=== PATIENT | male | born 1970 | race Caucasian/White ===

== ENCOUNTER 2020-07-06 09:58 | Outpatient (REF) | payer OTHER, SELFPAY ==
[2020-07-06 10:33] LABS: MANUAL DIFF FLAG NO
[2020-07-06 10:37] LABS: Basophils Percent Auto 0.3 % (0-2); Eosinophils Absolute Auto 0.1 X10*3/uL (0.0-0.4); Eosinophils Percent Auto 2.2 % (0-4); Hematocrit 44.8 % (42-52); Hemoglobin 14.3 g/dl (14.0-18.0); Imm Gran Abs Auto 0.02 X10*3/uL (0.00-0.03); Imm Gran Pct Auto 0.3 % (0.0-0.4); Lymphocytes Absolute Auto 1.6 X10*3/uL (1.2-4.9); Lymphocytes Percent Auto 26.7 % (20-40); Mean Corpuscular HGB Conc 31.9 g/dl (31.0-36.0); Mean Corpuscular Hemoglobin 26.6 pg (27.0-33.0); Mean Corpuscular Volume 83.3 fL (80-98); Mean Platelet Volume 11.2 fL (9.4-12.4); Monocytes Absolute Auto 0.4 X10*3/uL (0.1-1.2); Monocytes Percent Auto 6.8 % (2-11); Neutrophils Absolute Auto 3.7 X10*3/uL (2.0-8.3); Neutrophils Percent Auto 63.7 % (45-73); Platelet Count 193 X10*3/uL (160-400); Red Blood Count 5.38 X10*6/uL (4.60-5.80); Red Cell Distribution Width 13.2 % (11.0-16.0); White Blood Count 5.8 X10*3/uL (4.8-10.8)
[2020-07-06 12:50] LABS: Alanine Aminotransferase 30 U/L (0-40); Albumin Level 4.2 g/dL (3.5-5.0); Alkaline Phosphatase 58 U/L (39-117); Anion Gap 13 (12-20); Aspartate Amino Transferase 22 U/L (5-37); Bilirubin Total 0.8 mg/dL (0.0-1.0); Blood Urea Nitrogen 16 mg/dL (9-16); Calcium 9.1 mg/dL (8.4-10.2); Carbon Dioxide 25 mmol/L (22-29); Chloride 110 mmol/L (96-108); Cholesterol 228 mg/dL; Estimated Glomerular Filt Rate > 60; Glucose Fasting 101 mg/dL (60-99); HDL Cholesterol 39 mg/dL; LDL Cholesterol Calculated 155 mg/dl; Potassium 4.4 mmol/L (3.3-5.1); Sodium 144 mmol/L (135-145); Total Protein 7.8 g/dL (6.5-8.0); Triglycerides 172 mg/dL
== END 2020-07-06 09:59 | disposition home or self-care (01) ==
LOC: HO.LAB 09:58
PROVIDERS: PCP Internal Medicine; Visit Provider Internal Medicine
DX: Z00.00 Encounter for general adult medical examination without abnormal findings (principal); E11.9 Type 2 diabetes mellitus without complications
CPT/HCPCS: 36415; 80053; 80061; 85025

== ENCOUNTER 2020-08-17 10:00 | Outpatient (RCR) | payer OTHER, SELFPAY | END 2020-12-02 08:17 | disposition home or self-care (01) | LOC: HO.PT 10:00 | PROVIDERS: Visit Provider Podiatrist | DX: M72.2 Plantar fascial fibromatosis (principal) | CPT/HCPCS: 97033; 97110; 97112; 97140; 97162; 97530 ==

== ENCOUNTER 2020-09-20 09:37 | Outpatient (REF) | payer OTHER, SELFPAY ==
--- NOTE | ~2020-09-20 | XR_ITS ---
EXAMINATION: XR HAND, BILATERAL XR ELBOW, RIGHT CLINICAL INFORMATION: Pain. COMPARISON: None TECHNIQUE: Right elbow 3 views. 3 views each hand. FINDINGS: RIGHT ELBOW: There is a small posterior olecranon enthesophyte. No visible acute fracture or dislocation. The soft tissues are normal. LEFT HAND: There is no visible acute fracture, dislocation or subluxation seen. MCP, PIP and DIP joints are normal. There is joints are normal. The soft tissues are normal. RIGHT HAND: There is no visible acute fracture, dislocation or subluxation. MCP, PIP and DIP joints and the wrist joints are normal. The soft tissue is normal. XR/XR hand LT 2V IMPRESSION: Unremarkable bilateral hand exam. Small posterior olecranon head enthesophyte. Otherwise unremarkable right elbow exam.
--- NOTE | ~2020-09-20 | XR_ITS ---
EXAMINATION: XR HAND, BILATERAL XR ELBOW, RIGHT CLINICAL INFORMATION: Pain. COMPARISON: None TECHNIQUE: Right elbow 3 views. 3 views each hand. FINDINGS: RIGHT ELBOW: There is a small posterior olecranon enthesophyte. No visible acute fracture or dislocation. The soft tissues are normal. LEFT HAND: There is no visible acute fracture, dislocation or subluxation seen. MCP, PIP and DIP joints are normal. There is joints are normal. The soft tissues are normal. RIGHT HAND: There is no visible acute fracture, dislocation or subluxation. MCP, PIP and DIP joints and the wrist joints are normal. The soft tissue is normal. XR/XR elbow RT 2V IMPRESSION: Unremarkable bilateral hand exam. Small posterior olecranon head enthesophyte. Otherwise unremarkable right elbow exam.
--- NOTE | ~2020-09-20 | XR_ITS ---
EXAMINATION: XR HAND, BILATERAL XR ELBOW, RIGHT CLINICAL INFORMATION: Pain. COMPARISON: None TECHNIQUE: Right elbow 3 views. 3 views each hand. FINDINGS: RIGHT ELBOW: There is a small posterior olecranon enthesophyte. No visible acute fracture or dislocation. The soft tissues are normal. LEFT HAND: There is no visible acute fracture, dislocation or subluxation seen. MCP, PIP and DIP joints are normal. There is joints are normal. The soft tissues are normal. RIGHT HAND: There is no visible acute fracture, dislocation or subluxation. MCP, PIP and DIP joints and the wrist joints are normal. The soft tissue is normal. XR/XR hand RT 2V IMPRESSION: Unremarkable bilateral hand exam. Small posterior olecranon head enthesophyte. Otherwise unremarkable right elbow exam.
--- NOTE | ~2020-09-20 | XR_ITS ---
EXAMINATION: XR ELBOW, LEFT CLINICAL INFORMATION: Pain. COMPARISON: None TECHNIQUE: AP, lateral, and oblique views of the left elbow. FINDINGS: There is a small olecranon process enthesophyte. No acute fracture, dislocation, loose bodies or bony erosive changes. No abnormal joint effusion. XR/XR elbow LT 2V IMPRESSION: Small olecranon process enthesophyte.
[2020-09-20 10:47] LABS: Erythrocyte Sedimentation Rate 4 MM/HR (0-15)
== END 2020-09-20 09:38 | disposition home or self-care (01) ==
LOC: HO.XRAY 09:37
PROVIDERS: PCP Internal Medicine; Visit Provider Internal Medicine
DX: M79.10 Myalgia, unspecified site (principal); M79.643 Pain in unspecified hand; M25.521 Pain in right elbow; M25.522 Pain in left elbow; M79.641 Pain in right hand; M79.642 Pain in left hand
CPT/HCPCS: 36415; 73070; 73120; 85652

== ENCOUNTER 2021-01-03 13:00 | Outpatient (RCR) | payer OTHER, SELFPAY | END 2021-08-16 10:53 | disposition home or self-care (01) | LOC: HO.OT 13:00 | PROVIDERS: PCP Internal Medicine; Visit Provider Internal Medicine | DX: M25.521 Pain in right elbow (principal); M25.522 Pain in left elbow | CPT/HCPCS: 97033; 97035; 97110; 97165 ==

== ENCOUNTER 2021-01-25 12:14 | Outpatient (REF) | payer OTHER, SELFPAY ==
[2021-01-26 07:55] LABS: HBsAGNum1 0.66 S/CO (0.00-0.99); Hepatitis B Surface Antigen Negative (Negative)
[2021-01-26 08:02] LABS: HIV AB/AG Nonreactive (Nonreactive); HIV Num 1 0.07 S/CO (0.00-0.99); ~HepC Num1 0.15 S/CO (0.00-0.79); ~Hepatitis C Antibody Nonreactive (Nonreactive)
[2021-01-26 09:41] LABS: Syphilis Screen Nonreactive (Nonreactive)
== END 2021-01-25 12:15 | disposition home or self-care (01) ==
LOC: HO.LAB 12:14
PROVIDERS: PCP Internal Medicine; Visit Provider Obstetrics & Gynecology Reproductive Endocrinology
DX: N46.9 Male infertility, unspecified (principal)
CPT/HCPCS: 36415; 86780; 86803; 87340; 87389

== ENCOUNTER 2021-07-15 08:17 | Outpatient (REF) | payer BC, SELFPAY ==
[2021-07-15 08:28] LABS: MANUAL DIFF FLAG NO
[2021-07-15 09:17] LABS: Basophils Percent Auto 0.6 % (0-2); Eosinophils Absolute Auto 0.2 X10*3/uL (0.0-0.4); Eosinophils Percent Auto 2.6 % (0-4); Hematocrit 46.1 % (42.0-52.0); Hemoglobin 14.6 g/dl (14.0-18.0); Imm Gran Abs Auto 0.03 X10*3/uL (0.00-0.03); Imm Gran Pct Auto 0.4 % (0.0-0.4); Lymphocytes Absolute Auto 1.8 X10*3/uL (1.2-4.9); Lymphocytes Percent Auto 25.4 % (20-40); Mean Corpuscular HGB Conc 31.7 g/dl (31.0-36.0); Mean Corpuscular Hemoglobin 26.3 pg (27.0-33.0); Mean Corpuscular Volume 83.1 fL (80.0-98.0); Mean Platelet Volume 12.3 fL (9.4-12.4); Monocytes Absolute Auto 0.6 X10*3/uL (0.1-1.2); Monocytes Percent Auto 7.6 % (2-11); Neutrophils Absolute Auto 4.6 x10*3/uL (2.0-8.3); Neutrophils Percent Auto 63.4 % (45-73); Platelet Count 159 X10*3/uL (160-400); Red Blood Count 5.55 X10*6/uL (4.60-5.80); Red Cell Distribution Width 13.7 % (11.0-16.0); White Blood Count 7.2 X10*3/uL (4.8-10.8)
[2021-07-15 09:40] LABS: Alanine Aminotransferase 49 U/L (0-40); Albumin Level 4.2 g/dL (3.5-5.0); Alkaline Phosphatase 65 U/L (39-117); Anion Gap 11 (12-20); Aspartate Amino Transferase 32 U/L (5-37); Bilirubin Total 0.5 mg/dL (0.0-1.0); Blood Urea Nitrogen 18 mg/dL (9-16); Calcium 9.7 mg/dL (8.4-10.2); Carbon Dioxide 29 mmol/L (22-29); Chloride 106 mmol/L (96-108); Cholesterol 234 mg/dL; Estimated Glomerular Filt Rate > 60; Glucose Fasting 94 mg/dL (60-99); HDL Cholesterol 39 mg/dL; LDL Cholesterol Calculated 153 mg/dl; Potassium 4.5 mmol/L (3.3-5.1); Sodium 141 mmol/L (135-145); Total Protein 7.8 g/dL (6.5-8.0); Triglycerides 214 mg/dL
== END 2021-07-15 08:18 | disposition home or self-care (01) ==
LOC: HO.LAB 08:17
PROVIDERS: PCP Internal Medicine; Visit Provider Internal Medicine
DX: Z00.00 Encounter for general adult medical examination without abnormal findings (principal); Z13.0 Encounter for screening for diseases of the blood and blood-forming organs and certain disorders involving the immune mechanism
CPT/HCPCS: 36415; 80053; 80061; 85025

== ENCOUNTER 2022-01-05 07:55 | Outpatient (REF) | payer BC, SELFPAY ==
--- NOTE | ~2022-01-05 | XR_ITS ---
EXAMINATION: XR SHOULDER, LEFT CLINICAL INFORMATION: Left shoulder pain. COMPARISON: None TECHNIQUE: AP, scapular, and axillary views of the left shoulder. FINDINGS: No acute fracture or dislocation. Mild glenohumeral joint space narrowing with small marginal osteophytes. No osseous erosion. Small calcification adjacent to the lesser tuberosity consistent with distal subscapularis calcific tendinitis. XR/XR shoulder LT min 2V IMPRESSION: 1. Mild glenohumeral osteoarthritis. 2. Minimal distal subscapularis calcific tendinitis.
== END 2022-01-05 07:56 | disposition home or self-care (01) ==
LOC: HO.HOSX 07:55
PROVIDERS: Visit Provider Physician Assistant
DX: M25.512 Pain in left shoulder (principal)
CPT/HCPCS: 73030

== ENCOUNTER 2022-08-03 07:15 | Outpatient (REF) | payer BC, SELFPAY ==
[2022-08-03 07:27] LABS: MANUAL DIFF FLAG NO
[2022-08-03 07:41] LABS: Basophils Percent Auto 0.3 % (0-2); Eosinophils Absolute Auto 0.2 X10*3/uL (0.0-0.4); Eosinophils Percent Auto 2.8 % (0-4); Hematocrit 45.6 % (42.0-52.0); Hemoglobin 14.4 g/dl (14.0-18.0); Imm Gran Abs Auto 0.02 X10*3/uL (0.00-0.03); Imm Gran Pct Auto 0.3 % (0.0-0.4); Lymphocytes Absolute Auto 1.2 X10*3/uL (1.2-4.9); Lymphocytes Percent Auto 20.4 % (20-40); Mean Corpuscular HGB Conc 31.6 g/dl (31.0-36.0); Mean Corpuscular Hemoglobin 25.4 pg (27.0-33.0); Mean Corpuscular Volume 80.6 fL (80.0-98.0); Mean Platelet Volume 10.6 fL (9.4-12.4); Monocytes Absolute Auto 0.6 X10*3/uL (0.1-1.2); Monocytes Percent Auto 9.7 % (2-11); Neutrophils Absolute Auto 4.1 x10*3/uL (2.0-8.3); Neutrophils Percent Auto 66.5 % (45-73); Platelet Count 194 X10*3/uL (160-400); Red Blood Count 5.66 X10*6/uL (4.60-5.80); Red Cell Distribution Width 14.3 % (11.0-16.0); White Blood Count 6.1 X10*3/uL (4.8-10.8)
[2022-08-03 08:08] LABS: Alanine Aminotransferase 30 U/L (0-40); Albumin Level 4.1 g/dL (3.5-5.0); Alkaline Phosphatase 69 U/L (39-117); Anion Gap 13 (12-20); Aspartate Amino Transferase 20 U/L (5-37); Bilirubin Total 0.9 mg/dL (0.0-1.0); Blood Urea Nitrogen 16 mg/dL (9-16); Carbon Dioxide 26 mmol/L (22-29); Chloride 107 mmol/L (96-108); Cholesterol 215 mg/dL; Estimated Glomerular Filt Rate > 60; Glucose Fasting 109 mg/dL (60-99); HDL Cholesterol 40 mg/dL; LDL Cholesterol Calculated 152 mg/dl; Sodium 142 mmol/L (135-145); Total Protein 7.7 g/dL (6.5-8.0); Triglycerides 119 mg/dL
== END 2022-08-03 07:16 | disposition home or self-care (01) ==
LOC: HO.LAB 07:15
PROVIDERS: PCP Internal Medicine; Visit Provider Internal Medicine
DX: E78.5 Hyperlipidemia, unspecified (principal); N28.9 Disorder of kidney and ureter, unspecified; D64.9 Anemia, unspecified
CPT/HCPCS: 36415; 80053; 80061; 85025

== ENCOUNTER 2022-08-22 14:36 | Outpatient (REF) | payer BC, SELFPAY ==
--- NOTE | ~2022-08-22 | XR_ITS ---
EXAMINATION: XR HAND, BILATERAL CLINICAL INDICATIONS: Pain. TECHNIQUE: 3 views each hand. COMPARISON: Bilateral hands 09/20/2020. FINDINGS: Right Hand: There is minimal reduction in the PIP and DIP joint spaces of all digits. The MCP joint and the wrist joints are maintained normal. There is mild periarticular spurring PIP joint 1st digit. No bony erosive changes, loose bodies seen. No acute fracture or dislocation. Left Hand: There is mild reduction of PIP and DIP joint spaces of all digits. The MCP and intercarpal joint spaces are maintained normal. No visible acute fracture, dislocation or bony erosive changes. The soft tissues are normal. XR/XR hand RT 2V IMPRESSION: Mild degenerative changes PIP and DIP joints both hands. No visible acute fracture, dislocation or subluxation seen.
--- NOTE | ~2022-08-22 | XR_ITS ---
EXAMINATION: XR HAND, BILATERAL CLINICAL INDICATIONS: Pain. TECHNIQUE: 3 views each hand. COMPARISON: Bilateral hands 09/20/2020. FINDINGS: Right Hand: There is minimal reduction in the PIP and DIP joint spaces of all digits. The MCP joint and the wrist joints are maintained normal. There is mild periarticular spurring PIP joint 1st digit. No bony erosive changes, loose bodies seen. No acute fracture or dislocation. Left Hand: There is mild reduction of PIP and DIP joint spaces of all digits. The MCP and intercarpal joint spaces are maintained normal. No visible acute fracture, dislocation or bony erosive changes. The soft tissues are normal. XR/XR hand LT 2V IMPRESSION: Mild degenerative changes PIP and DIP joints both hands. No visible acute fracture, dislocation or subluxation seen.
== END 2022-08-22 14:37 | disposition home or self-care (01) ==
LOC: HO.XRAY 14:36
PROVIDERS: PCP Internal Medicine; Visit Provider Internal Medicine
DX: M79.641 Pain in right hand (principal); M79.642 Pain in left hand
CPT/HCPCS: 73120

== ENCOUNTER 2023-02-23 07:08 | Day surgery (SDC) | payer BC, SELFPAY ==
[2023-02-21 14:52] VITALS: BMI 32.4
--- NOTE | 2023-02-22 08:54 | HO.ANESPROP2 ---
Documented by User: Myra Marie NP 02/22/23 08:55 HPI - Anesthesia Eval Consult details Narrative: 52yo M for Upper Endoscopy and Colonoscopy [facility] Active Problems Active Problems: All Active Problems (Updated 02/21/23 @ 14:50 by Ana Cristina Schneider RN) Painful arc syndrome of left shoulder (Acute) Hoarse (Acute) Vertigo (Acute) Myalgia (Acute) Physical exam (Acute) Heel spur (Acute) Obesity (Acute) Past Medical History Medical History GERD (gastroesophageal reflux disease) Obesity Family History Family History Father No problems noted. 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 Cognitive needs: No Hearing needs: No Vision needs: No Meds Allergies Allergy/AdvReac Type Severity Reaction Status Date / Time shellfish derived Allergy Unknown Rash Verified 02/23/23 07:45 Exam Exam Date and Time: February 22, 2023 0854 Height,Weight and Vital Signs: Height 5 ft 7 in Weight 93.894 kg Pertinent Lab Results Pertinent Lab Results: Laboratory Tests 08/03/22 07:25 WBC 6.1 Hgb 14.4 Hct 45.6 Plt Count 194 Sodium 142 Potassium 4.0 Chloride 107 Carbon Dioxide 26 BUN 16 Creatinine 1.02 Documented by User: David Kelsey MD 03/08/23 17:44 [facility] Past Medical History Medical History GERD (gastroesophageal reflux disease) Obesity Functional capacity: independent ambulation Family History Family History Father No problems noted. 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 Cognitive needs: No Hearing needs: No Vision needs: No Meds Allergies Allergy/AdvReac Type Severity Reaction Status Date / Time shellfish derived Allergy Unknown Rash Verified 02/23/23 07:45 Exam Airway Mallampati Class: III Loose/Missing/Broken Teeth: Yes Assessment and Plan Assessment Anesthesia Assessment: Anesthesia Plan Discussed and Chart Reviewed Final Anesthetic Review Family History of Problems with Anesthesia: No History of Problems with Anesthesia: Yes (PONV) NPO: Yes ASA Class: II Final Preanesthetic Review: Meds/Allgs Chart Reviewed, Consent Obtained/Reviewed and Anes Risks/Benef Reviewed Patient Risk: Intermediate Procedure Risk: Intermediate Anesthetic Plan Anesthetic Plan: MAC: Disposition: Standard PACU
[2023-02-23 07:38] VITALS: BMI 32.3
[2023-02-23] MEDS: Lactated Ringers 1,000 ML 100 ML IVCONT (08:04)
[2023-02-23 08:05] VITALS: BP 133/87; PULSE 70; RESP 16; TEMP 36.1; O2SAT 99
[2023-02-23 09:59] VITALS: BP 94/54; PULSE 83; RESP 15; TEMP 36.1; O2SAT 98
--- NOTE | 2023-02-23 09:59 | P.BOP_ITS ---
Brief Operative Note Date of Service: 02/23/23 Pre-op diagnosis: GERD, Screening Post-op diagnosis: other (Hiatal hernia, Polyps) Procedure: EGD with biopsies, Colonoscopy to the cecum and TI with hot snare polypecomy x 3, bx/removal of polyps x 3, and placement of 1 Resolution clip Surgeon: Frederick Nj MD Anesthesia: MAC Was an Teacher'S Assistant used for this Procedure?: No Estimated blood loss (mL): 2.0 Pathology: other (A. EG Junction at 37cm B. Cecal polyp C. Ascending colon polyp s x 3 D. Transverse colon polyp E. Rectal polyp) Condition: stable Disposition: PACU
[2023-02-23 10:14] VITALS: BP 109/65; PULSE 66; RESP 16; TEMP 36.1; O2SAT 98
--- NOTE | 2023-02-23 11:05 | OP_ITS ---
DATE OF SERVICE: 02/23/2023 SURGEON: Frederick Nj MD INDICATIONS: The patient presents for evaluation of gastroesophageal reflux and colorectal cancer screening. Full consent has been obtained from him for both procedures, including risks of bleeding and perforation. PREOPERATIVE DIAGNOSIS: POSTOPERATIVE DIAGNOSIS: PROCEDURE PERFORMED: Esophagogastroduodenoscopy with biopsies and colonoscopy to the cecum and terminal ileum with biopsy and removal of polyps, hot snare polypectomy x 3, and placement of 1 resolution clip. ESTIMATED BLOOD LOSS: COMPLICATIONS: ANESTHESIA: Monitored anesthesia care. ASSISTANTS: SPECIMENS: PREOPERATIVE DIAGNOSES: Gastroesophageal reflux, colorectal cancer screening. POSTOPERATIVE DIAGNOSES: Gastroesophageal reflux, colorectal cancer screening, small hiatal hernia, gastroesophageal reflux and rule out Wei's esophagus, colon polyps, diverticulosis, and internal hemorrhoids. DESCRIPTION OF PROCEDURE: The patient was placed in the left lateral decubitus position. The Olympus video gastroscope was passed in the posterior oropharynx and upper esophagus under direct vision. The scope was passed slowly to the distal esophagus. The gastroesophageal junction appeared at 37 cm. There was some slight irregularity consistent with reflux and possibly small, less than 1 cm areas of Wei's mucosa. There was no esophagitis nor any lesions. The scope entered the stomach. There was a small hiatal hernia. The scope was advanced to the pylorus, and the duodenum was cannulated to the descending portion. The duodenum including the bulb appeared normal without mass or ulceration. The scope was withdrawn back to the stomach. The gastric antrum and body appeared normal with good peristalsis. The scope was retroflexed visualizing the proximal stomach carefully which appeared normal, without any sign of mass or ulceration. The scope was straightened and withdrawn back to the esophagus. Biopsies were obtained at the EG junction at 37 cm. Proximal to this, the esophageal mucosa appeared normal. The scope was withdrawn from the patient. He was turned around for the colonoscopy. The digital rectal exam revealed no abnormalities. The Olympus video pediatric colonoscope was entered into the rectum, advanced easily to the cecum. Once in the cecum, I did identify normal-appearing cecal pouch with appendiceal orifice and a normal-appearing ileocecal valve. The terminal ileum was cannulated and appeared normal. The scope withdrawn back in the colon. The entire cecum was well visualized. There was a 3 mm polyp in the cecum, which was biopsied and completely removed with a cold biopsy forceps. The remainder of the cecum appeared normal. The scope was then slowly withdrawn assessing all mucosal surfaces carefully. Preparation was excellent. In the proximal ascending colon were 3 polyps. One was only 3 mm in size and was biopsied and completely removed with a cold biopsy forceps. Another polyp was approximately 8 mm and relatively flat. This was removed by hot snare polypectomy and recovered by suction. The polypectomy site appeared clean, without any sign of residual polyp nor bleeding. In the same area was a larger, approximately 1.5 cm polyp on a short stalk, which was removed by hot snare polypectomy and then recovered with the retrieval net and brought out of the patient. The scope was then advanced back to the polypectomy site which appeared clean, without any sign of residual polyp nor bleeding. However, I did place a single resolution clip on to that polypectomy site with good deployment and good hemostasis. In the proximal transverse colon was an approximately 12 mm polyp on a short stalk, which was removed by hot snare polypectomy. The polypectomy site appeared clean, without any sign of residual polyp nor bleeding. This was recovered by withdrawing it on the tip of the scope and out of the patient. The scope was advanced back to that polypectomy site which appeared clean and without any sign of bleeding. There was a mild amount of sigmoid diverticulosis. I did not visualize any sign of colitis nor angiodysplasia. In the rectum was an approximately 3 mm polyp, which was biopsied and completely removed with a cold biopsy forceps. The scope was retroflexed visualizing small internal hemorrhoids, but no other pathology. The scope was straightened and withdrawn from the patient. He tolerated both procedures well and was returned to the recovery area in stable condition. IMPRESSION: 1. Colon polyps. 2. Mild diverticulosis. 3. Internal hemorrhoids. 4. Small hiatal hernia, gastroesophageal reflux, rule out Wei's esophagus. PLAN: The results of the biopsies will be checked. He was advised not to use any aspirin or NSAIDs for at least 1 week. I would recommend a repeat colonoscopy in 3 years assuming there is nothing more than just tubular adenomas on the pathology. At this point, he is not having any symptomatic reflux to speak of other than just occasional episodes. As such, I do not think he needs to be on any chronic medication for acid suppression. If there happens to be any Wei's mucosa seen on the biopsies without dysplasia, I would then recommend a repeat upper endoscopy in 3 years when he has the next colonoscopy. He will otherwise see me on a p.r.n. basis. This has been discussed with his as well. MD AYAH Zurita/LUL / [id number] MTDD
== END 2023-02-23 10:45 | disposition home or self-care (01) ==
PROVIDERS: PCP Internal Medicine; Visit Provider Internal Medicine
PROC: (CPT 43239; principal; 2023-02-23 08:30)
DX: K44.9 Diaphragmatic hernia without obstruction or gangrene (principal); K21.9 Gastro-esophageal reflux disease without esophagitis; Z12.11 Encounter for screening for malignant neoplasm of colon; D12.2 Benign neoplasm of ascending colon; D12.3 Benign neoplasm of transverse colon; K62.1 Rectal polyp; K57.30 Diverticulosis of large intestine without perforation or abscess without bleeding; K64.8 Other hemorrhoids
CPT/HCPCS: 43239; 45385; 45380; 88305; J2405; J2704; J3010

== ENCOUNTER 2023-07-02 09:59 | Outpatient (AMB) | payer BC, SELFPAY ==
--- NOTE | 2023-07-02 10:01 | A.OFFPC_ITS ---
Vital Signs 07/02/23 10:02 Height 5 ft 7 in Weight 206 lb BMI 32.3 BP 120/74 Blood Pressure Location Lt brachial Position Sitting Pulse 82 Pulse Source Pulse Oximeter Pulse Oximetry (%) 98 Oxygen Delivery Method Room Air Intake Visit Reasons: PE Zig Zag Stitcher Required: No Pressure Steamer Tender: Not Required per policy Accompanied by: Self / Same As Patient Allergies shellfish derived Allergy (Unknown, Verified 07/02/23 10:02) Rash Tobacco use date assessed: 07/02/23 Dental Screening Dental Screen Date: 07/02/23 Did you have a dental visit in the last 12 months?: Yes Did you have a dental problem in the last 6 months where you did not have access to dental care?: No Was dental information given to patient?: Patient has dentist HPI PE HPI Details healthy [facility] Medical History GERD (gastroesophageal reflux disease) Obesity Surgical History History of circumcision History of vasectomy Family History Father No problems noted. 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 1. Little interest or pleasure in doing things: not at all 2. Feeling down, depressed, or hopeless: not at all 3. Trouble falling or staying asleep, or sleeping too much: not at all 4. Feeling tired or having little energy: not at all 5. Poor appetite or overeating: not at all 6. Feeling bad about yourself - or that you are a failure or have let yourself or your family down: not at all 7. Trouble concentrating on things, such as reading the newspaper or watching television: not at all 8. Moving or speaking so slowly that other people could have noticed. Or the opposite - being so fidgety or restless that you have been moving around a lot more than usual: not at all 9. Thoughts that you would be better off or of hurting yourself in some way: not at all Total score: 0 Depression Screening Interpretation: Negative Depression Screening Done: Yes 76050 - PHQ-9 Billing: Yes Source: Developed by Drs. Frederick Kumar, Lo Hagen, Garfield Vázquez and colleagues, with an educational trina from [employer]. Thrive Questionnaire Date Thrive assessed: 07/02/23 I am a: Patient What is your living situation today?: I have a steady place to live Within the past 12 months, did the food you bought not last and you didn't have the money to get more?: Never true Within the past 12 months, did you worry whether your food would run out before you got money to buy more?: Never true Do you have trouble paying for medicines?: No Do you have trouble getting transportation to medical appointments?: No Do you have trouble paying your heating and electricity bill?: No Do you have trouble taking care of your child, family member or friend?: No Do you have trouble with day-to-day activities such as bathing, preparing meals, shopping, managing finances, etc.?: No Are you currently unemployed and looking for a job?: No Are you interested in more education?: No Please select the resources that you would like help with: None THRIVE Score: 0 AUDIT C Alcohol Use Questionnaire (AUDIT-C) 1. How often do you have a drink containing alcohol?: Never 3. How often do you have six or more drinks on one occasion?: Never Total Score: 0 Score Reviewed/Action Taken: Yes DAMIR-7 AMB Questionnaire DAMIR-7 Date DAMIR - 7 assessed: 07/02/23 Feeling nervous, anxious, or on edge: 1 = Several days Not being able to stop or control worryin = Not at all Worrying too much about different things: 1 = Several days Trouble relaxin = Not at all Being so restless that it is hard to sit still: 0 = Not at all Becoming easily annoyed or irritable: 0 = Not at all Feeling afraid as if something awful might happen: 0 = Not at all Total DAMIR-7 score (0-4 normal; 5-9 mild; 10-14 moderate; 15-21 severe): 2 Source: Developed by Drs. Frederick Kumar, Lo Hagen, Garfield Vázquez and colleagues, with an educational trina from [employer]. DAMIR-7 Assessment Billing DAMIR-7 Assessment Tool: DAMIR-7 Assessment 30895 Review of Systems Const Denies chills, Denies fatigue, Denies headache(s) and Denies weight loss Eyes Denies change in vision, Denies diplopia and Denies eye pain ENT Denies vertigo, Denies dizziness, Denies headache(s) and Denies nasal discharge Card Denies chest pain, Denies rapid heart rate and Denies dyspnea on exertion Resp Denies chest congestion, Denies cough, Denies pain with cough and Denies dyspnea on exertion GI Denies abdominal pain, Denies hematochezia and Denies change in bowel habits Musc Denies myalgias, Denies arthralgias and Denies joint swelling Skin/Breast Denies lesions and Denies unusual bruising Neuro Denies vertigo, Denies dizziness, Denies headache(s) and Denies focal weakness Endo Denies fatigue Physical exam (Primary Care) Vital Signs: Last Vital Signs Pulse 82 07/02/23 10:02 BP 120/74 07/02/23 10:02 Pulse Ox 98 07/02/23 10:02 Oxygen Delivery Method Room Air 07/02/23 10:02 BMI result Body Mass Index 32.3 Tobacco/Smoking Status: Tobacco use Status Tobacco use date assessed 07/02/23 07/02/23 10:03 Patient Tobacco Use Status Never used Tobacco 07/02/23 10:03 Tobacco use type 12/09/20 11:09 e-Cigarette/Vaping Use Never Used 07/02/23 10:03 PHQ-9: PHQ-9 Score PHQ-9: Total score 0 07/02/23 10:03 Depression Screening Interpretation: Negative Thrive Assessment: Date of Thrive Assessment Date Thrive assessed 07/02/23 07/02/23 10:03 Const General: cooperative, healthy appearing and no acute distress Orientation/consciousness: oriented to person, oriented to place and oriented to time HENMT Head: Yes normal to inspection, Yes normocephalic and Yes atraumatic Mouth: Normal oral and palatal mucosa present and tongue normal Throat: Yes posterior oropharynx normal and Yes uvula midline Eyes General: appearance normal, both eyes and all related structures Neck Neck: Yes normal visual inspection, Yes full ROM and Yes no lymphadenopathy Thyroid: Thyroid normal Carotids: normal carotid upstroke Chest Chest palpation & inspection: normal inspection of the chest Resp Effort & Inspection: normal respiratory effort and able to speak in complete sentences Auscultation: clear to auscultation bilaterally Cardio Jugular venous distension: no JVD Palpation: normal PMI Rate: regular rate Rhythm: regular rhythm Heart sounds: S1 normal heart sound present and S2 normal heart sound present GI Inspection: Yes normal to inspection Palpation (GI): Soft to palpation and No hepatosplenomegaly present Auscultation: normal bowel sounds General: Yes no CVA tenderness Back/Spine/Pelvis Back: no CVA tenderness Skin General skin exam: no rashes or lesions noted Neuro General: oriented to person, oriented to place and oriented to time Extrem General: Yes normal to inspection and Yes full ROM Assessment and Plan Assessment & Plan (1) Physical exam: Code(s): Z00.00 - Encounter for general adult medical examination without abnormal findings Plan: healthy; do labs Orders: Orders Lipid Panel Today E78.5 - Hyperlipidemia, unspecified Comprehensive [place]. Panel Fast Today N28.9 - Disorder of kidney and ureter, unspecified Prostate Specific Antigen Scr Today Z00.00 - Encounter for general adult medical examination without abnormal findings Complete Blood Count Auto Diff Today D64.9 - Anemia, unspecified Coding Level of Care Code Est Pt Prev Care 40-64y(58173) Diagnoses Physical exam Z00.00 Additional Codes DAMIR-7 Assessment Billing - DAMIR-7 Assessment Tool: DAMIR-7 Assessment 74685 ([id number])
[2023-07-02 10:02] VITALS: BP 120/74; PULSE 82; O2SAT 98; BMI 32.3
== END 2023-07-02 10:42 | disposition home or self-care (01) ==
PROVIDERS: Visit Provider Internal Medicine
DX: Z00.00 Encounter for general adult medical examination without abnormal findings (principal)
CPT/HCPCS: 99396

== ENCOUNTER 2023-07-20 08:09 | Outpatient (REF) | payer BC, SELFPAY ==
[2023-07-20 09:33] LABS: Basophils Percent Auto 0.4 % (0-2); Eosinophils Absolute Auto 0.1 X10*3/uL (0.0-0.4); Eosinophils Percent Auto 2.6 % (0-4); Hematocrit 46.4 % (42.0-52.0); Imm Gran Abs Auto 0.02 X10*3/uL (0.00-0.03); Imm Gran Pct Auto 0.4 % (0.0-0.4); Lymphocytes Absolute Auto 1.4 X10*3/uL (1.2-4.9); Lymphocytes Percent Auto 25.2 % (20-40); MANUAL DIFF FLAG SCAN; Mean Corpuscular HGB Conc 32.3 g/dl (31.0-36.0); Mean Corpuscular Hemoglobin 26.5 pg (27.0-33.0); Monocytes Absolute Auto 0.4 X10*3/uL (0.1-1.2); Monocytes Percent Auto 6.8 % (2-11); Neutrophils Absolute Auto 3.6 x10*3/uL (2.0-8.3); Neutrophils Percent Auto 64.6 % (45-73); PLT CLUMP 1; Red Blood Count 5.66 X10*6/uL (4.60-5.80); Red Cell Distribution Width 13.7 % (11.0-16.0); SCAN SMEAR FLAG 1; White Blood Count 5.5 X10*3/uL (4.8-10.8)
[2023-07-20 09:53] LABS: Alanine Aminotransferase 27 U/L (0-40); Albumin Level 4.4 g/dL (3.5-5.0); Alkaline Phosphatase 64 U/L (39-117); Anion Gap 12 (12-20); Aspartate Amino Transferase 20 U/L (5-37); Bilirubin Total 0.7 mg/dL (0.0-1.0); Blood Urea Nitrogen 19 mg/dL (9-16); Calcium 9.6 mg/dL (8.4-10.2); Carbon Dioxide 25 mmol/L (22-29); Chloride 110 mmol/L (96-108); Cholesterol 233 mg/dL (<200); Estimated Glomerular Filt Rate > 60; Glucose Fasting 97 mg/dL (60-99); HDL Cholesterol 40 mg/dL (>40); LDL Cholesterol Calculated 150 mg/dL (<100); Potassium 3.7 mmol/L (3.3-5.1); Sodium 143 mmol/L (135-145); Total Protein 8.6 g/dL (6.5-8.0); Triglycerides 216 mg/dL (<150)
[2023-07-20 11:09] LABS: Platelet Count 183 X10*3/uL (160-400)
[2023-07-20 11:10] LABS: Mean Platelet Volume 11.7 fL (9.4-12.4); SLIDE REVIEW VERIFIED
== END 2023-07-20 08:10 | disposition home or self-care (01) ==
LOC: HO.LAB 08:09
PROVIDERS: Visit Provider Internal Medicine
DX: Z00.00 Encounter for general adult medical examination without abnormal findings (principal); Z12.5 Encounter for screening for malignant neoplasm of prostate; D64.9 Anemia, unspecified; E78.5 Hyperlipidemia, unspecified; N28.9 Disorder of kidney and ureter, unspecified
CPT/HCPCS: 36415; 80053; 80061; 84153; 85025

== ENCOUNTER 2023-08-17 10:41 | Outpatient (AMB) | payer BC, SELFPAY ==
[2023-08-17 10:43] VITALS: BP 126/84; PULSE 83; O2SAT 98; BMI 32.4
--- NOTE | 2023-08-17 10:43 | A.OFFPC_ITS ---
Vital Signs 08/17/23 10:43 Height 5 ft 7 in Weight 207 lb 0.8 oz BMI 32.4 BP 126/84 Blood Pressure Location Lt brachial Position Sitting Pulse 83 Pulse Source Pulse Oximeter Pulse Oximetry (%) 98 Oxygen Delivery Method Room Air Intake Visit Reasons: Right side of face in pain Intake Note: pt states blurry vision on right eye X3days Language Asst Required: No Allergies shellfish derived Allergy (Unknown, Verified 08/17/23 10:43) Rash Medication List - Last Reconciled 08/17/23 by Raza Alexander MD amoxicillin-pot clavulanate 500-125 mg (Augmentin) 1 tab PO BID Tobacco use date assessed: 08/17/23 Dental Screening Dental Screen Date: 07/02/23 HPI Right side of face in pain HPI Details right facial pressure for a few days PFSH Medical History GERD (gastroesophageal reflux disease) Obesity Surgical History History of circumcision History of vasectomy Family History Father No problems noted. 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 How often do you have a drink containing alcohol?: Never 3. How often do you have six or more drinks on one occasion?: Never Total Score: 0 Score Reviewed/Action Taken: Yes DAMIR-7 AMB Questionnaire DAMIR-7 Date DAMIR - 7 assessed: 07/02/23 Source: Developed by Drs. Frederick Kumar, Lo Hagen, Garfield Vázquez and colleagues, with an educational trina from [employer]. Review of Systems Const Denies chills, Denies headache(s) and Denies weight loss ENT Denies headache(s) Card Denies chest pain, Denies syncope, Denies irregular heart rhythm and Denies dyspnea Resp Denies chest congestion, Denies cough and Denies dyspnea GI Denies abdominal pain, Denies change in stool character, Denies nausea and Denies vomiting Musc Denies deformity and Denies joint swelling Neuro Denies syncope and Denies headache(s) Physical exam (Primary Care) Vital Signs: Last Vital Signs Pulse 83 08/17/23 10:43 BP 126/84 08/17/23 10:43 Pulse Ox 98 08/17/23 10:43 Oxygen Delivery Method Room Air 08/17/23 10:43 BMI result Body Mass Index 32.4 Tobacco/Smoking Status: Tobacco use Status Tobacco use date assessed 08/17/23 08/17/23 10:49 Patient Tobacco Use Status Never used Tobacco 08/17/23 10:49 Tobacco use type 12/09/20 11:09 e-Cigarette/Vaping Use Never Used 08/17/23 10:49 Thrive Assessment: Date of Thrive Assessment Date Thrive assessed 07/02/23 08/17/23 10:49 Const General: cooperative, comfortable, no acute distress and alert Neck Neck: Yes no lymphadenopathy Thyroid: Thyroid normal Resp Effort & Inspection: normal respiratory effort Auscultation: clear to auscultation bilaterally Percussion: percussion normal Cardio Jugular venous distension: no JVD Palpation: normal PMI Rate: regular rate Rhythm: regular rhythm Heart sounds: S1 normal heart sound present and S2 normal heart sound present GI Inspection: Yes normal to inspection Palpation (GI): No hepatosplenomegaly present Skin General skin exam: no rashes or lesions noted Extrem General: Yes no clubbing, cyanosis or edema Assessment and Plan Assessment & Plan (1) Sinusitis: Code(s): J32.9 - Chronic sinusitis, unspecified Plan: rx sent Medications: New amoxicillin-pot clavulanate 500-125 mg (Augmentin) 1 tab PO BID 10 tabs 0RF Coding Level of Care Code Est Pt Level 3 (66211) Diagnoses Sinusitis J32.9
== END 2023-08-17 10:59 | disposition home or self-care (01) ==
PROVIDERS: PCP Internal Medicine; Visit Provider Internal Medicine
DX: J32.9 Chronic sinusitis, unspecified (principal)
CPT/HCPCS: 99213

== ENCOUNTER 2023-08-30 11:52 | Outpatient (AMB) | payer BC, SELFPAY ==
--- NOTE | 2023-08-30 12:41 | AM.OFFWIN_ITS ---
Intake Vital Signs 08/30/23 12:42 Height 5 ft 7 in Weight 207 lb BMI 32.4 BP 118/70 Blood Pressure Location Rt brachial Position Sitting Pulse 72 Pulse Source Pulse Oximeter Temp 97.9 F Temp Source Oral Pulse Oximetry (%) 97 Oxygen Delivery Method Room Air Intake Visit Reasons: EST/sore throat X5 days(lobby) Intake Note: pt is here for sore throat for 5 days Patient Tobacco Use Status: Never used Tobacco Allergies shellfish derived Allergy (Unknown, Verified 08/30/23 12:42) Rash Do you need a note to return to daycare/school/sports/work: No HPI HPI Comments History of Present Illness Details 52 y/o male patient who presents to walk in clinic with c/o throat pain associated with tightness. Reports everynight for the past 5 days, he has been feeling like his throat is narrowing and has trouble breathing. Reports that symptoms would away in the mornings. Pt was recently treated with Amoxicillin - 5 day course for Sinusitis. Rapid Strep negative. [facility]MERLY [facility] Medical History GERD (gastroesophageal reflux disease) Obesity Surgical History History of circumcision History of vasectomy Family History Father No problems noted. 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 Cognitive needs: No Hearing needs: No Vision needs: Yes Review of Systems Const All systems reviewed & are unremarkable except as noted in HPI and below Physical Exam Vital Signs: Last Vital Signs Temp 97.9 F 08/30/23 12:42 Pulse 72 08/30/23 12:42 BP 118/70 08/30/23 12:42 Pulse Ox 97 08/30/23 12:42 Oxygen Delivery Method Room Air 08/30/23 12:42 BMI result Body Mass Index 32.4 Const General: comfortable and no acute distress Orientation/consciousness: patient oriented x3 HEENT Head: Yes normocephalic Ears: external ears normal General nose exam: Normal nasal mucous membranes and turbinates present Face and sinus: Yes sinuses nontender Mouth: moist mucous membranes Throat: Yes posterior oropharynx normal Neck Neck: Yes no lymphadenopathy, Yes trachea midline, Yes supple and Yes no JVD Thyroid: Thyroid normal Neuro General: patient oriented x3, gait normal and moves all extremities Psych Speech and movement: Normal speech and movement present Assessment & Plan Assessment & Plan (1) Acute pharyngitis: Code(s): J02.9 - Acute pharyngitis, unspecified Qualifiers: Pharyngitis/tonsillitis etiology: unspecified etiology Qualified Code(s): J02.9 - Acute pharyngitis, unspecified Plan: - Examination within Normal limits - Throat clear, trachea midline, Pt moving air in/out with no difficult - Advised Pt to go to ED if this continues to happen at night time. - Advised F/U with PCP for possible referral to ENT. Coding Level of Care Code Est Pt Level 3 (36318) Diagnoses Acute pharyngitis, unspecified etiology J02.9 Pharyngitis/tonsillitis etiology: unspecified etiology Time Spent (min) 15
[2023-08-30 12:42] VITALS: BP 118/70; PULSE 72; TEMP 36.6; O2SAT 97; BMI 32.4
== END 2023-08-30 13:29 | disposition home or self-care (01) ==
PROVIDERS: PCP Internal Medicine; Visit Provider Nurse Practitioner Family
DX: J02.9 Acute pharyngitis, unspecified (principal)
CPT/HCPCS: 87880; 99213

== ENCOUNTER 2023-10-19 08:24 | Outpatient (AMB) | payer BC, SELFPAY ==
[2023-10-19 08:27] VITALS: BP 138/80; PULSE 73; O2SAT 99; BMI 32.3
--- NOTE | 2023-10-19 08:27 | MHC.PC.OV ---
Vital Signs 10/19/23 08:27 Height 5 ft 7 in Weight 206 lb 0.6 oz BMI 32.3 BP 138/80 Blood Pressure Location Lt brachial Position Sitting Pulse 73 Pulse Source Pulse Oximeter Pulse Oximetry (%) 99 Oxygen Delivery Method Room Air Intake Visit Reasons: pain on both thumbs Medical Billing Assistant Required: No Allergies shellfish derived Allergy (Unknown, Verified 10/19/23 08:27) Rash Medication List - Last Reconciled 10/19/23 by Raza Alexander MD No Known Home Meds Tobacco use date assessed: 08/17/23 Dental Screening Dental Screen Date: 07/02/23 HPI pain on both thumbs HPI Details continues with pain both thumbs; xr showed mild OA; 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 How often do you have a drink containing alcohol?: Never 3. How often do you have six or more drinks on one occasion?: Never Total Score: 0 Score Reviewed/Action Taken: Yes DAMIR-7 AMB Questionnaire DAMIR-7 Date DAMIR - 7 assessed: 07/02/23 Source: Developed by Drs. Frederick Kumar, Lo Hagen, Garfield Vázquez and colleagues, with an educational trina from [employer]. Review of Systems Const Denies chills, Denies headache(s) and Denies weight loss ENT Denies headache(s) Card Denies chest pain, Denies syncope, Denies irregular heart rhythm and Denies dyspnea Resp Denies chest congestion, Denies cough and Denies dyspnea GI Denies abdominal pain, Denies change in stool character, Denies nausea and Denies vomiting Musc Denies deformity and Denies joint swelling Neuro Denies syncope and Denies headache(s) Physical exam (Primary Care) Vital Signs: Last Vital Signs Pulse 73 10/19/23 08:27 BP 138/80 10/19/23 08:27 Pulse Ox 99 10/19/23 08:27 Oxygen Delivery Method Room Air 10/19/23 08:27 BMI result Body Mass Index 32.3 Tobacco/Smoking Status: Tobacco use Status Tobacco use date assessed 08/17/23 10/19/23 08:31 Patient Tobacco Use Status Never used Tobacco 10/19/23 08:31 Tobacco use type 12/09/20 11:09 e-Cigarette/Vaping Use Never Used 10/19/23 08:31 Thrive Assessment: Date of Thrive Assessment Date Thrive assessed 07/02/23 10/19/23 08:31 Const General: cooperative, comfortable, no acute distress and alert Neck Neck: Yes no lymphadenopathy Thyroid: Thyroid normal Resp Effort & Inspection: normal respiratory effort Auscultation: clear to auscultation bilaterally Percussion: percussion normal Cardio Jugular venous distension: no JVD Palpation: normal PMI Rate: regular rate Rhythm: regular rhythm Heart sounds: S1 normal heart sound present and S2 normal heart sound present GI Inspection: Yes normal to inspection Palpation (GI): No hepatosplenomegaly present Skin General skin exam: no rashes or lesions noted Extrem General: Yes no clubbing, cyanosis or edema Assessment and Plan Assessment & Plan (1) Thumb tendonitis: Code(s): M77.8 - Other enthesopathies, not elsewhere classified Plan: ref OT Orders: Orders OT Evaluation and Treatment Today M77.8 - Other enthesopathies, not elsewhere classified Coding Level of Care Code Est Pt Level 3 (88840) Diagnoses Thumb tendonitis M77.8
== END 2023-10-19 08:42 | disposition home or self-care (01) ==
PROVIDERS: PCP Internal Medicine; Visit Provider Internal Medicine
DX: M77.8 Other enthesopathies, not elsewhere classified (principal)
CPT/HCPCS: 99213

== ENCOUNTER 2024-01-28 11:13 | Outpatient (AMB) | payer BC, SELFPAY ==
[2024-01-28 11:14] VITALS: BP 140/84; PULSE 90; O2SAT 97; BMI 31.9
--- NOTE | 2024-01-28 11:14 | MHC.PC.OV ---
Vital Signs 01/28/24 11:14 Height 5 ft 7 in Weight 204 lb BMI 31.9 BP 140/84 H Blood Pressure Location Lt brachial Position Sitting Pulse 90 Pulse Source Pulse Oximeter Pulse Oximetry (%) 97 Oxygen Delivery Method Room Air Intake Visit Reasons: SinusitisInfection Intake Note: Pt reports feeling more anxious lately than normal. Wine Merchant Required: No Accompanied by: Self / Same As Patient Allergies shellfish derived Allergy (Unknown, Verified 01/28/24 11:16) Rash Medication List - Last Reconciled 01/28/24 by Raza Alexander MD amoxicillin-pot clavulanate 500-125 mg (Augmentin) 1 tab PO BID Tobacco use date assessed: 08/17/23 Dental Screening Dental Screen Date: 07/02/23 HPI SinusitisInfection HPI Details facial pressure and congestion; history of sinus infections PFSH Medical History (Updated 01/28/24 @ 12:37 by Raza Alexander MD) GERD (gastroesophageal reflux disease) Obesity Surgical History History of circumcision History of vasectomy Family History Father No problems noted. 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 1. Little interest or pleasure in doing things: not at all 2. Feeling down, depressed, or hopeless: not at all 3. Trouble falling or staying asleep, or sleeping too much: not at all 4. Feeling tired or having little energy: not at all 5. Poor appetite or overeating: not at all 6. Feeling bad about yourself - or that you are a failure or have let yourself or your family down: not at all 7. Trouble concentrating on things, such as reading the newspaper or watching television: not at all 8. Moving or speaking so slowly that other people could have noticed. Or the opposite - being so fidgety or restless that you have been moving around a lot more than usual: not at all 9. Thoughts that you would be better off or of hurting yourself in some way: not at all Total score: 0 Depression Screening Interpretation: Negative Depression Screening Done: Yes 69067 - PHQ-9 Billing: Yes Source: Developed by Drs. Frederick Kumar, Lo Hagen, Garfield Vázquez and colleagues, with an educational trina from [employer]. Thrive Questionnaire Date Thrive assessed: 07/02/23 Are you currently unemployed and looking for a job?: No AUDIT C Alcohol Use Questionnaire (AUDIT-C) 1. How often do you have a drink containing alcohol?: Never 3. How often do you have six or more drinks on one occasion?: Never Total Score: 0 Score Reviewed/Action Taken: Yes DAMIR-7 AMB Questionnaire DAMIR-7 Date DAMIR - 7 assessed: 07/02/23 Feeling nervous, anxious, or on edge: 1 = Several days Not being able to stop or control worryin = Not at all Worrying too much about different things: 1 = Several days Trouble relaxin = Not at all Being so restless that it is hard to sit still: 0 = Not at all Becoming easily annoyed or irritable: 0 = Not at all Feeling afraid as if something awful might happen: 0 = Not at all Total DAMIR-7 score (0-4 normal; 5-9 mild; 10-14 moderate; 15-21 severe): 2 Source: Developed by Drs. Frederick Kumar, Lo Hagen, Garfield Vázquez and colleagues, with an educational trina from [employer]. DAMIR-7 Assessment Billing DAMIR-7 Assessment Tool: DAMIR-7 Assessment 89560 Review of Systems Const Denies chills, Denies headache(s) and Denies weight loss ENT Denies headache(s) Card Denies chest pain, Denies syncope, Denies irregular heart rhythm and Denies dyspnea Resp Denies chest congestion, Denies cough and Denies dyspnea GI Denies abdominal pain, Denies change in stool character, Denies nausea and Denies vomiting Musc Denies deformity and Denies joint swelling Neuro Denies syncope and Denies headache(s) Physical exam (Primary Care) Vital Signs: Last Vital Signs Pulse 90 01/28/24 11:14 BP 140/84 H 01/28/24 11:14 Pulse Ox 97 01/28/24 11:14 Oxygen Delivery Method Room Air 01/28/24 11:14 BMI result Body Mass Index 31.9 Tobacco/Smoking Status: Tobacco use Status Tobacco use date assessed 08/17/23 01/28/24 11:18 Patient Tobacco Use Status Never used Tobacco 01/28/24 11:18 Tobacco use type Cigarette 01/28/24 11:18 e-Cigarette/Vaping Use Never Used 01/28/24 11:18 PHQ-9: PHQ-9 Score PHQ-9: Total score 0 01/28/24 11:18 Depression Screening Interpretation: Negative Thrive Assessment: Date of Thrive Assessment Date Thrive assessed 07/02/23 01/28/24 11:18 Const General: cooperative, comfortable, no acute distress and alert Neck Neck: Yes no lymphadenopathy Thyroid: Thyroid normal Resp Effort & Inspection: normal respiratory effort Auscultation: clear to auscultation bilaterally Percussion: percussion normal Cardio Jugular venous distension: no JVD Palpation: normal PMI Rate: regular rate Rhythm: regular rhythm Heart sounds: S1 normal heart sound present and S2 normal heart sound present GI Inspection: Yes normal to inspection Palpation (GI): No hepatosplenomegaly present Skin General skin exam: no rashes or lesions noted Extrem General: Yes no clubbing, cyanosis or edema Coding Level of Care Code Est Pt Level 3 (57158) Diagnoses Sinusitis J32.9 Additional Codes DAMIR-7 Assessment Billing - DAMIR-7 Assessment Tool: DAMIR-7 Assessment 01542 ([id number]) Assessment & Plan Assessment & Plan (1) Sinusitis: Code(s): J32.9 - Chronic sinusitis, unspecified Category: Medical Plan: rx sent Medications: New amoxicillin-pot clavulanate 500-125 mg (Augmentin) 1 tab PO BID 20 tabs 0RF
== END 2024-01-28 11:27 | disposition home or self-care (01) ==
PROVIDERS: PCP Internal Medicine; Visit Provider Internal Medicine
DX: J32.9 Chronic sinusitis, unspecified (principal)

== ENCOUNTER → 2024-01-28 11:13 | Outpatient (BNVA) | payer BC, SELFPAY | PROVIDERS: PCP Internal Medicine; Visit Provider Internal Medicine | DX: J32.9 Chronic sinusitis, unspecified (principal) | CPT/HCPCS: 96127 ==

== ENCOUNTER 2024-02-21 13:00 | Outpatient (RCR) | payer BC, SELFPAY ==
--- NOTE | 2023-11-22 16:28 | MHC.OT.OEV ---
[address] [phone] F: [phone] Occupational Therapy Evaluation Patient Name: Tj Gonzalez Diagnosis: (B)thumb tendinitis Date of Onset: Date of Surgery: Attending Provider: Raza Alexander Prescribed Treatment: MD Follow Up Appointment: History of Current Condition: Patient is a 53 y/o male with no significant PMX with c/o pain in (B)thumbs. Per physician report he has (B) tendinitis and mild OA of the thumbs and was referred for pain management. 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 He stated that due to the pain his has difficulty with tasks such as opening jars, and changing his sons diapers. He lives with in a 1 level home with his 2 y/o son and 6 y/o daughter. He denies numbness/ tingling and reports pain as sharp and shooting pain for the last 3 months which comes and goes. Significant Medical History: Precautions/Contraindications: Patient Goals: Not to have any pain, without medication. Hand Dominance: Right Observations: QuickDASH Score: Prior Level of Function and Occupation Self Care, Employment, Leisure: (I)ADLs/IADLs (I)Road biking, farming Living Situation, Family and/or Social Support: Lives with , son and daughter Current Level of Function and Occupation Self Care, Employment, Leisure: min (A)self care tasks min (A) leisure activities Sleep: (I) Driving: Vision: Balance: Pain Assessment Pain Score: 6 Pain Scale Used: Numeric (0 - 10) Pain Location and Description: 4/10 constantly and at rest 6/10 during movement Aggravating Factors: Movement Alleviating Factors: Hot tub, ice, gel for OA Skin and Soft Tissue Assessment Skin and Soft Tissue: Comments: WFL Nerve assessment Ulnar Nerve: Median Nerve: Radial Nerve: Comments: WFL Sensory Assessment Temperature: Light Touch: Left Impaired Proprioception: Vibration: Comments: [place] Maged Monofilament (R)WFL, (L) diminished light touch Edema Assessment Upper Extremity: Lower Extremity: Comments: WFL Dexterity Assessment Dexterity: B/L Impaired Comments: Functional Dexterity Test= (R)33.4 seconds , (L)33.09 seconds Special Tests Comments: (-) Aura test AROM(PROM) Strength Cervical Cervical Flexion: Cervical Extension: Cervical Lateral Flexion: Cervical Rotation: Comments: Shoulder Flexion: Extension: Abduction: Internal Rotation: External Rotation: Comments: WFL Flexion: Extension: Abduction: Internal Rotation: External Rotation: Comments: WFL Elbow Flexion: Extension: Pronation: Supination: Comments: WFL Flexion: Extension: Pronation: Supination: Comments: WFL Wrist Flexion: Extension: Ulnar Deviation: Radial Deviation: Comments: WFL Flexion: Extension: Ulnar Deviation: Radial Deviation: Comments: WFL Thumb Thumb CMC Flexion: WFL Thumb MCP Flexion: WFL Thumb IP Flexion: WFL Radial Abduction: WFL Palmar Abduction: [place] (K[place]andji 0-10): Comments: Digits Index MCP: PIP: DIP: Long MCP: PIP: DIP: Ring MCP: PIP: DIP: Small MCP: PIP: DIP: Comments: WFL Gross Grasp: (R)77lbs., (L)59lbs. Lateral Pinch: (R)18, (L)18 Two-Point Pinch: (R)10, (L)8 Three-Jaw Oziel: (R)13, (L) 14 Comments: Patient Education Primary Language: Warehouse Operator Required: No Current Knowledge: Teaching Method: Education Needs Identified on Evaluation: How did patient/family demonstrate learning? Barriers to Learning: Readiness for Learning: Who was educated? Comments: Plan of Care Assessment: Patient is a 53 y/o male with pain in (B)thumbs that has been present for the last 3 months. He denies numbness/tingling and reports pain is localized to the thenar eminence. Provocative testing was (-) for Aura test. Patient achieved 33.4 seconds (R) and 33.09 seconds for the Functional Dexterity test indicating impairment (B'ly). Patient's housekeeper strength was under for patient's age and gender as he achieved 77lbs. (R) and 59lbs. (L).Quick DASH= 36.4 indicating patient's perception of UEs impairment during self care tasks. Patient's CLOF is min (A) as patient presents with pain, impaired coordination, impaired strength and impaired performance during self care tasks. Due to the documented impairments it is recommended that patient received skilled OT in order for patient to achieve his PLOF of (I) during self care tasks. Thank you for your referral. STG Duration: 2 weeks Short Term Goals: Patient will report decreased pain from 8/10 to 6/10 during self care tasks Patient will increase (B)housekeeper strength by 5lbs. Patient will decrease FDT score by 10 seconds for improved performance during self care tasks LTG Duration: 4 weeks [facility]ci Goals: Patient will report 0/10 pain in (B)thumbs Patient be (I) with HEP Patient will have a decreased Quick DASH by 20% indicating overall UE improvement. Frequency and Duration: The patient will be seen 2x a week for 4 weeks Treatment Plan: Therapeutic Exercise Therapeutic Activity Home Exercise Program Patient Education ADL Training Ultrasound NMES Iontophoresis Paraffin Fluidotherapy MHP Cold Packs Joint Mobilization Soft Tissue Mobilization Kinesiotaping Skilled OT eval and treat Electronically Signed By: REYNA Last/Radha,CLT Reviewed/agree with student documentation: Therapist: Please sign and return to therapist, Thank you for your referral.
--- NOTE | 2024-02-22 08:46 | MHC.OT.OP ---
[address] [phone] F: [phone] Occupational Therapy Progress Note Patient Name: Tj Gonzalez Diagnosis: (B)thumb tendinitis Date of Surgery: Date of Evaluation: 11/22/23 Treatments to Date: 14 Cancellations to Date: No Shows to Date: Subjective: Its only painful at night Pain Score: 4 Pain Location: (B)thumbs Objective Measures: [place] Maged Monofilament (R)WFL, (L) diminished light touch Status: Not Progressing Assessment: Patient has been seen for 13 1:1treatment sessions at this time patient has decreased his pain during ADL self care tasks however, patient has not met 5 out of the 6 therapeutic goals due to consistent participation in manual labor and other environmental factors outside of the clinic. Therapist emphasized the importance of compliance with the HEP and environmental modifications on his overall well being and progress. Pt reported he never engages in his HEP outside of therapy and does not consistently come to his therapy appointments, the lack of consistency has caused a plateau in progress. Discharge planning was discussed with patient, patient was agreeable to d/c plan and reports making appt w/ his MD. The patient will be d/c after 14 tx sessions after discussing and reviewing his HEP, patient was recommended to seek a follow up with MD for a reevaluation. 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 Patient will decrease FDT score by 10 seconds for improved performance during self care tasks Women'S Swim Coach Goals: Patient will report 0/10 pain in (B)thumbs (NOT MET) Patient be (I) with HEP (not fully compliant) Patient will have a decreased Quick DASH by 20% indicating overall UE improvement. Frequency and Duration: The patient will be seen 1x 1 week Treatment Plan: Therapeutic Exercise Therapeutic Activity Home Exercise Program Patient Education Edema Control ADL Training Ultrasound NMES Iontophoresis Paraffin Fluidotherapy MHP Cold Packs Joint Mobilization Soft Tissue Mobilization Kinesiotaping Other (see comments) Pt will be d/c after 14 visits if pt is still not progressing. Electronically Signed By: Gifty Boswell OT/s Reviewed/agree with student documentation: Yes Therapist: Myra Mg, OTR/L, CLT
--- NOTE | 2024-02-22 08:47 | MHC.OT.DC ---
[address] [phone] F: [phone] Occupational Therapy Discharge Note Patient Name: Tj Gonzalez Provider: Raza Alexander Diagnosis: (B)thumb tendinitis Date of Surgery: Date of Evaluation: 11/22/23 Date of Discharge: Treatments to Date: 14 Cancellations to Date: No Shows to Date: Discharge Status: Visit Non-compliance Discharge Summary: Patient is d/c from skilled OT as he is inconsistent with treatment sessions and is plateauing in progress. Patient stated he will make an appointment with his physician for further diagnostic assessment. Thank you for your referral. Electronically Signed By: Gifty Boswell OT/s Reviewed/agree with student documentation: Yes Therapist: REYNA Last/Radha, CLT Please Sign and return to therapist, thank you for your referral.
== END 2024-02-22 08:47 | disposition home or self-care (01) ==
LOC: HO.OT 13:00
PROVIDERS: PCP Internal Medicine; Visit Provider Internal Medicine
DX: M77.8 Other enthesopathies, not elsewhere classified (principal)
CPT/HCPCS: 97035; 97110; 97140; 97165

== ENCOUNTER 2024-03-24 08:11 | Outpatient (REF) | payer BC, SELFPAY ==
--- NOTE | ~2024-03-24 | XR_ITS ---
EXAMINATION: XR HAND RIGHT CLINICAL INFORMATION: Pain in right hand M79.641. COMPARISON: XR Right hand 08/22/2022 TECHNIQUE: PA, lateral, and oblique views of the right hand. FINDINGS: Moderate 1st CMC joint osteoarthritis. Mild degenerative changes of the MCP and IP joints. No active erosions or suspicious soft tissue calcifications. Small chronic appearing marginal erosions at the 2nd and 3rd DIP joints and 4th PIP joint which are more conspicuous. No acute osseous abnormality. XR/XR hand RT min 3V IMPRESSION: [id number] degenerative changes of the right hand as described. Small chronic appearing marginal erosions at the 2nd and 3rd DIP joints and 4th PIP joint. Electronically signed by: Bakari Stokes MD 05/01/2024 09:27 AM DIAZ
--- NOTE | ~2024-03-24 | XR_ITS ---
EXAMINATION: XR HAND LEFT CLINICAL INFORMATION: Pain in left hand M79.642. COMPARISON: XR Left hand 08/22/2022 TECHNIQUE: PA, lateral, and oblique views of the left hand. FINDINGS: Moderate 1st CMC joint osteoarthritis. Mild degenerative changes elsewhere throughout the MCP and IP joints with no acute fracture or malalignment. No active erosions or suspicious soft tissue calcifications. XR/XR hand LT min 3V IMPRESSION: Moderate 1st CMC joint osteoarthritis. Mild degenerative changes elsewhere throughout the hand. No acute abnormality. Possible small chronic marginal erosions at the 3rd DIP joint and 5th PIP joint which are more conspicuous. Electronically signed by: Bakari Stokes MD 05/01/2024 09:25 AM EST
== END 2024-03-24 08:12 | disposition home or self-care (01) ==
LOC: HO.HOSX 08:11
DX: M79.642 Pain in left hand (principal); M79.641 Pain in right hand; M18.0 Bilateral primary osteoarthritis of first carpometacarpal joints
CPT/HCPCS: 20600; 73130; J1010; J2003

== ENCOUNTER 2024-03-24 10:59 | Outpatient (AMB) | payer BC, SELFPAY ==
--- NOTE | 2024-03-24 11:10 | A.OFFVIS_ITS ---
Vital Signs 03/24/24 11:11 Height 5 ft 7 in Weight 205 lb BMI 32.1 Handedness Right Intake Visit Reasons: New Prob- bilateral hand pain Intake Note: Tj is a 53 year old right hand dominant male who presents today for a new problem visit with complaints of bilateral hand pain. Patient reports he is having an chelle pain at the base of his bilateral hands. He has difficulty with gripping and grasping with activities such as opening bottles and cans. At night his symptoms worsen so he wears thumb braces with mild relief. He was discharged from therapy 3 weeks ago and found very little improvement with these visits. Denies numbness and tingling. Allergies shellfish derived Allergy (Unknown, Verified 03/24/24 11:12) Rash HPI HPI New Prob- bilateral hand pain: Details: Patient is a 53-year-old male who presents for evaluation of bilateral thumb pain, right slightly worse than left, ongoing for approximately 8-9 months. The patient states that this pain started when he by a new device for different t ypes of pushups that involved holding onto a bar, and was doing 100 pushups per day. The patient states that during this time, he noticed that he was developing significant pain throughout his hands, but worst at the base of bilateral thumbs. Patient states that over time, the pain in the rest of his hand has subsided, but he does continue to experience significant circumferential pain about the base of bilateral thumbs. The patient states that he does not have a very high tolerance for pain, and that this pain really bothers him on a daily basis. He denies any numbness or tingling in bilateral hands. No other acute complaints or concerns at this time. COUNTS INCLUDE 234 BEDS AT THE [facility] Medical History (Updated 03/24/24 @ 13:08 by CAL Arevalo) GERD (gastroesophageal reflux disease) Obesity Surgical History History of circumcision History of vasectomy Family History Father No problems noted. 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 Neuro: Normal sensation of the tips of all digits of the bilateral hand at this time Vascular: Cap refill brisk Pain: Positive CMC grind bilaterally No tenderness to palpation of bilateral MCP joints of thumbs No tenderness to palpation in bilateral radial styloid Negative Aura bilaterally ROM: Patient is able to make closed fist and extend all digits of bilateral hands, but reports some discomfort in the base of the thumb when doing so Skin: No lacerations or abrasions. General: No ecchymosis, erythema, or evidence of infection. Psych: Appears grossly normal Affect normal Attitude cooperative Office Procedures Joint Inj/Aspir; Non-Pain Clin Joint Injection/Drain Prep: site was prepped using aseptic technique and injection warnings given Procedure: The patient tolerated the procedure well, but had some pain with the injection and there was some relief with the local anesthesia Elbows, Wrist, Hands, Details: Left basal joint injection Hand injection Medium joint : Left Hand Coding Procedure code (CPT) selection complete Results Reviewed Results Reviewed: X-rays obtained in the office today and independently reviewed by me, Shai Vasquez PA-C, demonstrate moderate to severe degenerative changes of the 1st CMC joint of bilateral hands. Assessment & Plan Assessment & Plan (1) Arthritis of carpometacarpal (CMC) joint of both thumbs: Code(s): M18.0 - Bilateral primary osteoarthritis of first carpometacarpal joints Category: Medical Plan 1. Basal joint arthritis, left Patient is educated about this condition Patient is educated about the treatment options available The risks and benefits of a steroid injection including but not limited to risk of damage to blood vessels, nerve, tendon, infection, skin bleaching, persistent or worsening pain, and failure to improve symptoms were discussed with the patient and they wish to proceed with the steroid injection. Once consent was obtained the skin over the dorsum of the left basal joint was aseptically prepped. The joint was then injected with a combination of 1 mL of (40 mg/ml} Depo-Medrol and 1% plain Lidocaine. The patient appears to have tolerated the procedure well and with no complications. He had good early reli ef before leaving clinic today. He knows that they may not have another steroid injection into this joint for least 4 months. 2. Basal joint arthritis, right At this time, patient is educated that his joint space on the right is so narrow that I am not confident I will be able to get the needle into the joint without x-ray guidance Therefore, patient was referred to Dr. Lugo for right basal joint injection under x-ray guidance in 3-4 weeks Patient was amenable to this plan Orders: Orders XR hand LT min 3V Today M79.642 - Pain in left hand XR hand RT min 3V Today M79.641 - Pain in right hand Coding Level of Care Code New Pt Level 3 (08403) Diagnoses Arthritis of carpometacarpal (CMC) joint of both thumbs M18.0 CPT Codes Elbows, Wrist, Hands, - Hand injection Medium joint 57236: Left Hand ([id number])
[2024-03-24 11:11] VITALS: BMI 32.1
== END 2024-03-24 12:03 | disposition home or self-care (01) ==
PROVIDERS: PCP Internal Medicine
DX: M18.0 Bilateral primary osteoarthritis of first carpometacarpal joints (principal)
CPT/HCPCS: 20600; 99203

== ENCOUNTER 2024-06-13 09:43 | Outpatient (AMB) | payer BC, SELFPAY ==
[2024-06-13 09:47] VITALS: BP 128/80; PULSE 72; O2SAT 98; BMI 33.2
--- NOTE | 2024-06-13 09:47 | A.OFFPC_ITS ---
Vital Signs 06/13/24 09:47 Height 5 ft 7 in Weight 212 lb BMI 33.2 BP 128/80 Blood Pressure Location Lt brachial Position Sitting Pulse 72 Pulse Source Pulse Oximeter Pulse Oximetry (%) 98 Oxygen Delivery Method Room Air Intake Visit Reasons: follow up Allergies shellfish derived Allergy (Unknown, Verified 06/13/24 09:48) Rash Medication List - Last Reconciled 06/16/24 by Raza Alexander MD No Known Home Meds Tobacco use date assessed: 06/13/24 Dental Screening Dental Screen Date: 06/13/24 Did you have a dental visit in the last 12 months?: Yes Did you have a dental problem in the last 6 months where you did not have access to dental care?: No Was dental information given to patient?: Patient has dentist HPI follow up HPI Details occasional stress and anxiety, but coping well [facility] Medical History (Updated 06/16/24 @ 08:27 by Raza Alexander MD) GERD (gastroesophageal reflux disease) Obesity Surgical History History of circumcision History of vasectomy Family History Father No problems noted. 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 1. Little interest or pleasure in doing things: not at all 2. Feeling down, depressed, or hopeless: not at all 3. Trouble falling or staying asleep, or sleeping too much: not at all 4. Feeling tired or having little energy: not at all 5. Poor appetite or overeating: not at all 6. Feeling bad about yourself - or that you are a failure or have let yourself or your family down: not at all 7. Trouble concentrating on things, such as reading the newspaper or watching television: not at all 8. Moving or speaking so slowly that other people could have noticed. Or the opposite - being so fidgety or restless that you have been moving around a lot more than usual: not at all 9. Thoughts that you would be better off or of hurting yourself in some way: not at all Total score: 0 Depression Screening Interpretation: Negative Depression Screening Done: Yes 92421 - PHQ-9 Billing: Yes Source: Developed by Drs. Frederick Kumar, Lo Hagen, Garfield Vázquez and colleagues, with an educational trina from [employer]. Thrive Questionnaire Date Thrive assessed: 06/13/24 I am a: Patient What is your living situation today?: I have a steady place to live Within the past 12 months, did the food you bought not last and you didn't have the money to get more?: Never true Within the past 12 months, did you worry whether your food would run out before you got money to buy more?: Never true Do you have trouble paying for medicines?: No Do you have trouble getting transportation to medical appointments?: No Do you have trouble paying your heating and electricity bill?: No Do you have trouble taking care of your child, family member or friend?: No Do you have trouble with day-to-day activities such as bathing, preparing meals, shopping, managing finances, etc.?: No Are you currently unemployed and looking for a job?: No Are you interested in more education?: No Currently or been in a relationship where the following occur: No concerns reported THRIVE Score: 0 AUDIT C Alcohol Use Questionnaire (AUDIT-C) 1. How often do you have a drink containing alcohol?: Never 3. How often do you have six or more drinks on one occasion?: Never Total Score: 0 Score Reviewed/Action Taken: Yes DAMIR-7 AMB Questionnaire DAMIR-7 Date DAMIR - 7 assessed: 06/13/24 Feeling nervous, anxious, or on edge: 1 = Several days Not being able to stop or control worryin = Not at all Worrying too much about different things: 1 = Several days Trouble relaxin = Not at all Being so restless that it is hard to sit still: 0 = Not at all Becoming easily annoyed or irritable: 0 = Not at all Feeling afraid as if something awful might happen: 0 = Not at all Total DAMIR-7 score (0-4 normal; 5-9 mild; 10-14 moderate; 15-21 severe): 2 Source: Developed by Drs. Frederick Kumar, Lo Hagen, Garfield Vázquez and colleagues, with an educational trina from [employer]. DAMIR-7 Assessment Billing DAMIR-7 Assessment Tool: DAMIR-7 Assessment 93952 Review of Systems Const Denies chills, Denies headache(s) and Denies weight loss ENT Denies headache(s) Card Denies chest pain, Denies syncope, Denies irregular heart rhythm and Denies dyspnea Resp Denies chest congestion, Denies cough and Denies dyspnea GI Denies abdominal pain, Denies change in stool character, Denies nausea and Denies vomiting Musc Denies deformity and Denies joint swelling Neuro Denies syncope and Denies headache(s) Physical exam (Primary Care) Vital Signs: Last Vital Signs Pulse 72 06/13/24 09:47 BP 128/80 06/13/24 09:47 Pulse Ox 98 06/13/24 09:47 Oxygen Delivery Method Room Air 06/13/24 09:47 BMI result Body Mass Index 33.2 Tobacco/Smoking Status: Tobacco use Status Tobacco use date assessed 06/13/24 06/13/24 09:53 Patient Tobacco Use Status Never used Tobacco 06/13/24 09:53 Tobacco use type Cigarette 06/13/24 09:53 e-Cigarette/Vaping Use Never Used 06/13/24 09:53 PHQ-9: PHQ-9 Score PHQ-9: Total score 0 06/13/24 09:53 Depression Screening Interpretation: Negative Thrive Assessment: Date of Thrive Assessment Date Thrive assessed 06/13/24 06/13/24 09:53 Currently or been in a relationship where the following occur: No concerns reported Const General: cooperative, comfortable, no acute distress and alert Neck Neck: Yes no lymphadenopathy Thyroid: Thyroid normal Resp Effort & Inspection: normal respiratory effort Auscultation: clear to auscultation bilaterally Percussion: percussion normal Cardio Jugular venous distension: no JVD Palpation: normal PMI Rate: regular rate Rhythm: regular rhythm Heart sounds: S1 normal heart sound present and S2 normal heart sound present GI Inspection: Yes normal to inspection Palpation (GI): No hepatosplenomegaly present Skin General skin exam: no rashes or lesions noted Extrem General: Yes no clubbing, cyanosis or edema Coding Level of Care Code Est Pt Level 3 (60494) Diagnoses Anxiety F41.9 Additional Codes DAMIR-7 Assessment Billing - DAMIR-7 Assessment Tool: DAMIR-7 Assessment 70921 ([id number]) PHQ-9 - 06794 - PHQ-9 Billing: Yes ([id number]) Assessment & Plan Assessment & Plan (1) Anxiety: Code(s): F41.9 - Anxiety disorder, unspecified Category: Medical Plan: coping well w/o meds
--- OUTSIDE RECORDS SUMMARY | 2024-06-13 10:32 | XMS_ITS | Patient Health Record ---
Author Organization [facility] Address [address] [place] [address] Care Team Providers Care Color Matcher Name Role Phone Raza Alexander MD Primary Care Provider Frederick Gonsalez [phone] ALLERGIES Allergen (clinical drug ingredient) Drug/Non Drug Allergy documented on EMR Reaction Allergy Type Onset Date Status Shellfish (FN) Shellfish-derived Products Unknown Drug Allergy Active REASON FOR REFERRAL No Information SOCIAL HISTORY Tobacco Use: Social History Observation Description Date Details (start date - stop date) Never Smoker NA - NA Sex Assigned At : Social History Observation Description Sex Assigned At Unknown Tobacco Use/Smoking Question Answer Notes Patient is a nonsmoker Alcohol Screen Question Answer Notes Did you have a drink contain ing alcohol in the past year? Yes How often did you have a dri nk containing alcohol in the past year? Monthly or less (1 point) How many drinks did you have on a typical day when you were drinking in the past year? 1 or 2 drinks (0 point) How often did you have 6 or more drinks on one occasion in the past year? Never (0 point) Points 1 Interpretation Negative PROBLEMS Problem Type ICD Code Onset Dates Problem Status W/U Status Risk SNOMED Code Notes Problem Colon cancer screening (Z12.11) Active confirmed 253169731 Problem Diverticulosis of large intestine without perforation or abscess without bleeding (K57.30) Active confirmed Diverticul ar disease of colon (260277841) Problem GERD (gastroesophageal reflux disease) (K21.9) Active confirmed Gastroesophagea l reflux disease (133574636) Problem Gastroesophageal reflux disease, unspecified whether esophagitis present (K21.9) Active confirmed [id number] PLAN OF TREATMENT Future Test Test Name Order Date UPPER GI ENDOSCOPY 11/23/2022 COLONOSCOPY 11/23/2022 Insurance Providers Payer Name Payer Address Payer Phone Subscriber Number Group Number Insured Name Patient Relationship to Insured Coverage Start Date Coverage End Date [facility] [employer] [address] [place] [address] [id number]IR Self - patient is the insured MEDICAL (GENERAL) HISTORY Medical History History ICD Code Denies NH,DM,CVA,Lung disease,renal dise ase GERD Surgical History Surgery Date(Month/Year) Vasectomy, and then a reversal with succ essful results
--- OUTSIDE RECORDS SUMMARY | 2024-06-13 10:32 | XMS_ITS | Clinical Summary ---
Author Organization [facility] Address [phone] On license of [facility] [place] [address] Care Team Providers Care Admitted Attorneys Name Role Phone Raza Alexander MD Primary Care Provider [phone] Allergies No known active allergies Medications No known medications Social History Tobacco Use Types Packs/Day Years Used Date Smoking Tobacco: Never Smokeless Tobacco: Never Alcohol Use Standard Drinks/Week Comments Yes 0 (1 standard drink = 0.6 oz pur e alcohol) Education Answer Date Recorded Are you interested in more education? Not on sharri e 08/11/2022 Are you concerned about learning? Not on file 08/11/2022 No 08/11/2022 No 08/11/2022 Digital Access Answer Date Recorded No 09/11/2022 No 09/11/2022 No 09/11/2022 Reliable internet access at home? Not on file 09/11/2022 Device with a working camera? Not on file Sex and Gender Information Value Date Recorded Sex Assigned at Not on file Gender Identity Not on file Sexual Orientation Not on file Last Filed Vital Signs Vital Sign Reading Time Taken Comments Blood Pressure 120/82 12/28/2015 9:56 AM EDT Pulse - - Temperature - - Respiratory Rate - - Oxygen Saturation - - Inhaled Oxygen Concentration - - Weight 92.5 kg (204 lb) 12/28/2015 9:56 AM EDT Height 170.2 cm (5' 7 ) 12/28/2015 9:56 AM EDT Body Mass Index 31.95 12/28/2015 9:56 AM EDT Plan of Treatment Health Maintenance Due Date Last Done Comments LIPID PANEL 1972 DEPRESSION SCREENING 1984 HEPATITIS B SCREENING 1990 HEPATITIS C SCREENING 1990 HIV ONE-TIME SCREENING (18-6 5 YEARS) 1990 HEPATITIS B VACCINES (1 of 3 - 19+ 3-dose series) 11/06/1991 SMOKING STATUS SCREENING (On ce After 26 Yrs) 1998 COLOGUARD 2017 COLONOSCOPY 2017 COLORECTAL CANCER SCREENING 2017 FIT TEST 2017 FOBT 2017 SIGMOIDOSCOPY 2017 VIRTUAL COLONOSCOPY 2017 PNEUMOCOCCAL VACCINES (50+ years) (1 of 1 - PCV) 2022 ZOSTER VACCINES (1 of 2) 2022 INFLUENZA VACCINE (#1) 2023 05/01/2019 COVID-19 VACCINE (3 2023-2 5 season) 2023 05/26/2020, 04/28/2020 Adult Td,Tdap Booster 06/07/2026 06/07/2016 HEPATITIS A VACCINES Aged Out No long er eligible based on patient's age to complete this topic HIB VACCINES Aged Out No longer eligi ble based on patient's age to complete this topic MENINGOCOCCAL VACCINES (ACWY) Aged Out No longer eligible based on patient's age to complete this topic Medical Devices Not on file Care Teams Admitted Attorneys Relationship Specialty Start Date End Date Raza Alexander MD [address] [place] [address] Dr NGUYEN Cecilia TIPTON [place] PCP - General Internal Medicine 09/08/15 Additional Source Comments The information contained in this document represents components of the legal health record. It is not the complete legal health record.[facility]
--- OUTSIDE RECORDS SUMMARY | 2024-06-13 10:32 | XMS_ITS ---
Author Organization [facility] Address [address] [place] [address] Care Team Providers Care Box Sealing Machine Catcher Name Role Phone Raza Alexander MD Primary Care Provider Frederick Gonsalez [phone] Encounters Encounter Location Date Provider Diagnosis [facility] [address] [place] [address] 03/03/2023 Frederick Nj PLAN OF TREATMENT No Information
--- OUTSIDE RECORDS SUMMARY | 2024-06-13 10:32 | XMS_ITS ---
Author Organization [facility] Address [address] [place] [address] Care Team Providers Care Calculation Reviewer Name Role Phone Raza Alexander MD Primary Care Provider Frederick Gonsalez Unavailable [phone] REASON FOR VISIT screening,gerd PROBLEMS Problem Type ICD Code Onset Dates Problem Status W/U Status Risk SNOMED Code Notes Problem Diverticulosis of large intestine without perforation or abscess without bleeding (K57.30) Active confirmed Diverticul ar disease of colon (076345332) Problem GERD (gastroesophageal reflux disease) (K21.9) Active confirmed Gastroesophagea l reflux disease (433394934) Encounters Encounter Location Date Provider Diagnosis [facility] [address] [place] [address] [phone] 02/23/2023 Frederick Nj Encounter for scre ening colonoscopy Z12.11 ; Colon polyps K63.5 ; Rectal polyp K62.1 ; Diverticulosis of large intestine without perforation or abscess without bleeding K57.30 ; Other hemorrhoids K64.8 ; GERD (gastroesophageal reflux disease) K21.9 and Hiatal hernia K44.9 ASSESSMENTS Encounter Date Diagnosis Assessment Notes Treatment Notes Treatment Clinical Notes 02/23/2023 Encounter for screening colonoscopy (ICD-10 - Z12.11) 02/23/2023 Colon polyps (ICD-10 - K63.5) 02/23/2023 Rectal polyp (ICD-10 - K62.1) 02/23/2023 Diverticulosis of large intestine without perforation or abscess without bleeding (ICD-10 - K57.30) 02/23/2023 Other hemorrhoids (ICD-10 - K64.8) 02/23/2023 GERD (gastroesophageal reflux disease) (ICD-10 - K21.9) 02/23/2023 Hiatal hernia (ICD-1 0 - K44.9) PLAN OF TREATMENT No Information
--- OUTSIDE RECORDS SUMMARY | 2024-06-13 10:32 | XMS_ITS | Patient Health Record ---
Author Organization [employer] [facility] Address [address] [place] [address] Care Team Providers Care Director Of Financial Reporting Name Role Phone Raza Alexander MD Primary Care Provider Unavaila Deanne Mc Unavailable [phone] Allergies Allergen (clinical drug ingredient) Drug/Non Drug Allergy documented on EMR Reaction Allergy Type Onset Date Status Shellfish (FN) Shellfish-derived Products Unknown Drug Allergy Active Reason For Referral No Information Medications Medication SIG (Take, Route, Fr equency, Duration) Notes Start Date End Date Status Nightsplint . . . AFO - L1930 for . Active Physical Therapy . . . 2-3x/week for 3-4 weeks Active Immunizations Vaccine Route Administration Date Status Comme nts COVID-19 Moderna Vaccine Unknown 04/28/2020 Administered Second Dose:05/17 Social History Tobacco Use: Social History Observation Description Date Details (start date - stop date) Never Smoker NA - NA Tobacco Use/Smoking Question Answer Notes Are you a: nonsmoker Additional Findings: Tobacco Non-User Aggressive non-smoker Alcohol Screen Question Answer Notes Did you have a drink containing alcohol in the p ast year? No Points 0 Interpretation Negative Tobacco use other than smoking: Question Answer Notes Are you an other tobacco user? No Plan Of Treatment Pending Test Test Name Order Date X ray : Foot, right 3V 06/15/2020 Insurance Providers Payer Name Payer Address Payer Phone Subscriber Number Group Number Insured Name Patient Relationship to Insured Coverage Start Date Coverage End Date [place] [address] [place] [phone] [id number] Jud Gonzales Spouse - patient is the spouse of the insured Medical (General) History Medical History History ICD Code Cancer Surgical History Surgery Date(Month/Year) Sperm extraction for IVF 04/2020
== END 2024-06-13 11:11 | disposition home or self-care (01) ==
PROVIDERS: PCP Internal Medicine; Visit Provider Internal Medicine
DX: F41.9 Anxiety disorder, unspecified (principal)

== ENCOUNTER → 2024-06-13 09:43 | Outpatient (BNVA) | payer BC, SELFPAY | PROVIDERS: PCP Internal Medicine; Visit Provider Internal Medicine | DX: F41.9 Anxiety disorder, unspecified (principal) | CPT/HCPCS: 96127 ==

== ENCOUNTER 2024-06-18 12:32 | Outpatient (AMB) | payer BC, SELFPAY ==
--- NOTE | 2024-06-18 12:48 | A.OFFVIS_ITS ---
Vital Signs 06/18/24 12:50 Height 5 ft 7 in Weight 212 lb BMI 33.2 Intake Visit Reasons: INJ RT basal joint pain Intake Note: Tj 53 yr old male presents today for his right hand basal joint pain. He was last seen with Leigha Gibbons for his left basal joint injection on 03/24/24. States injection has helped a lot with pain. States he would like to have an injection for his right hand as well. Allergies shellfish derived Allergy (Unknown, Verified 06/13/24 09:48) Rash HPI HPI INJ RT basal joint pain: Details: Tj is a 53 year old right hand dominant man who presents for his right basal joint arthritis. He received a left basal joint injection by CAL Gibbons on 03/24/24, with good relief. He complains of pain at the base of his right thumb, worse with pinching or gripping activities. He says that his last injection was very painful, and he felt somewhat lightheaded afterwards. He denies any fainting however. 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 [facility] Medical History (Updated 06/16/24 @ 08:27 by Raza Alexander MD) GERD (gastroesophageal reflux disease) Obesity Surgical History History of circumcision History of vasectomy Family History Father No problems noted. 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 Cognitive needs: No Hearing needs: No Vision needs: Yes Review of Systems Const All systems reviewed & are unremarkable except as noted in HPI and below Physical Exam Vital Signs: BMI result Body Mass Index 33.2 Const General: cooperative, healthy appearing and no acute distress Orientation/consciousness: patient oriented x3 HEENT Head: Yes normocephalic and Yes atraumatic Eyes EOM: EOMs intact bilaterally Resp Effort & Inspection: normal respiratory effort and able to speak in complete sentences Cardio Jugular venous distension: no JVD Skin General skin exam: turgor normal Rashes: no rashes Neuro General: patient oriented x3 Extrem Other: Evaluation of Right Upper Extremity: The patient is alert, oriented, and in no acute distress Neuro: Median, Ulnar, Radial nerves motor and sensory intact and sensation is normal to the tips of all digits Vascular: Cap refill brisk ROM: He can make a fist and extend all his digits No lockng or catching Skin: No lacerations or abrasions. General: No Ecchymosis. No Erythema or evidence of infection. Most tender over the basal joint Pos shoulder sign Pos CMC grind No MCP joint tenderness No tenderness over the 1st dorsal compartment Radiographs: 3 views of the right hand from 03/24/24 were reviewed by me today in clinic. They show no fractures or dislocations. There is basal joint arthritis with joint space narrowing, subchondral sclerosis, and osteophyte formation. Psych Appearance: grossly normal Affect: normal affect Attitude: cooperative Office Procedures AMB Fracture Care Details: No fracture, injection Fracture Billing Code: Fracture Billing Code Assessment & Plan Assessment & Plan (1) Arthritis of carpometacarpal (CMC) joint of both thumbs: Code(s): M18.0 - Bilateral primary osteoarthritis of first carpometacarpal joints Category: Medical Plan Assessment & Plan: 1. Right basal joint arthritis I educated him about this condition I discussed operative and non-operative treatment options The patient would like to proceed with an injection I discussed activity modification, they should limit or avoid any heavy or repetitive pinching or gripping activities He was fitted for a comfort cool brace to wear with daily activity Injection #1: The risks and benefits of a steroid injection including but not limited to risk of damage to blood vessels, nerve, tendon, infection, skin bleaching, persistent or worsening pain, and failure to improve symptoms were discussed with the patient and they wish to proceed with the steroid injection. Once consent was obtained the skin over the dorsum of the Right basal joint was sterilely prepped. The joint was then injected with a combination of 1 mL of (40 mg/ml} Depo-Medrol and 1% plain Lidocaine. The patient appears to have tolerated the procedure well and with no complications. He had good early relief before leaving clinic today and was very happy with how his injection went. He knows that they may not have another steroid injection into this joint for least 4 months. 2. Left basal joint arthritis, S/P injection Date of injection: 03/24/24 Good relief following his injection He can receive a repeat no sooner than one month from now Scribed for Kelsea Lugo MD by Phoenix Bunn, medical staff credentialing coordinator, on 06/18/24 at 1:15 PM, EST. Coding Level of Care Code Est Pt Level 3 (62677) Diagnoses Arthritis of carpometacarpal (CMC) joint of both thumbs M18.0 CPT Codes Fracture Care - Fracture Billing Code: Fracture Billing Code ([id number])
[2024-06-18 12:50] VITALS: BMI 33.2
--- OUTSIDE RECORDS SUMMARY | 2024-06-18 14:52 | XMS_ITS | Patient Health Record ---
Author Organization [facility] Address [address] [place] [address] Care Team Providers Care Virtualization Consultant Name Role Phone Raza Alexander MD Primary Care Provider Unavaila Deanne Mc Unavailable [phone] Allergies Allergen (clinical drug ingredient) Drug/Non Drug [...] Insured Coverage Start Date Coverage End Date [place] [address] [place] [phone] [id number] Jud Gonzales Spouse - patient is the spouse of the insured Medical (General) History Medical History History ICD Code Cancer Surgical History Surgery Date(Month/Year) Sperm extraction for IVF 04/2020
--- OUTSIDE RECORDS SUMMARY | 2024-06-18 14:53 | XMS_ITS ---
Author Organization [facility] Address [address] [place] [address] Care Team Providers Care Epic Director Name Role Phone Raza Alexander MD Primary Care Provider Frederick Gonsalez Unavailable [phone] REASON FOR VISIT screening,gerd Problems Problem Type SNOMED Code ICD Code Onset Dates Problem Status W/U Status Risk Notes Problem Diverticular disease of colon (147821429) Diverticulosis of large intestine without perforation or abscess without bleeding (K57.30) Active confirmed Problem Gastroesophageal reflux disease (106619285) GERD (gastroesophageal reflux disease) (K21.9) Active confirmed Encounters Encounter Location Date Provider Diagnosis [facility] [place] [address] [place] [id number] 02/23/2023 Frederick Nj Encounter for scre ening colonoscopy Z12.11 ; Colon polyps K63.5 ; Rectal polyp K62.1 ; Diverticulosis of large intestine without perforation or abscess without bleeding K57.30 ; Other hemorrhoids K64.8 ; GERD (gastroesophageal reflux disease) K21.9 and Hiatal hernia K44.9 Assessments Encounter Date Diagnosis (ICD Code) Assessment Notes Treatment Notes Treatment Clinical Notes Section Notes 02/23/2023 Encounter for screening colonoscopy (ICD-10 - Z12.11) 02/23/2023 Colon polyps (ICD-10 - K63.5) 02/23/2023 Rectal polyp (ICD-10 - K62.1) 02/23/2023 Diverticulosis of large intestine without perforation or abscess without bleeding (ICD-10 - K57.30) 02/23/2023 Other hemorrhoids (ICD-10 - K64.8) 02/23/2023 GERD (gastroesophageal reflux disease) (ICD-10 - K21.9) 02/23/2023 Hiatal hernia (ICD-10 - K44.9) Plan Of Treatment No Information Progress Notes * ZENIA BASHIRDOB:1970 (53 yo F)Acc No.[id number]:02/23/2023 EGD&COL/MAC Patient:ZENIA BOSWELL Provider:?Frederick Nj MD :1970???Age:52 Y???Sex:Female D ate:02/23/2023 Address:[address] [place] [address] Pcp:Raza Alexander MD Subjective: * Chief Complaints: * ???1. Screening,gerd. * Medical History:? Objective: * Vitals:? Assessment: * Assessment: 1.?Encounter for screening c olonoscopy - Z12.11 (Primary)???2.?Colon polyps - K63.5???3.?Rectal polyp - K62.1???4.?Diverticulosis of large intestine without perforation or abscess without bleeding - K57.30???5.?Other hemorrhoids - K64.8???6.?GERD (gastroesophageal reflux disease) - K21.9???7.?Hiatal hernia - K44.9??? Plan: * Treatment: * Procedure Codes:?31886 LESIO N REMOVAL COLONOSCOPY, Modifiers: [place] , [address] COLONOSCOPY AND BIOPSY, Modifiers: 59 , [place], [address] UPPER GI ENDOSCOPY, BIOPSY * * The named appointment provid er may or may not be the originator of this progress note, and it is not deemed complete until electronically signed by the appointment provider. Sign off status: Pending * Provider:?Frederick Nj MD Date:? 023 Generated for Tiffanie santo/Jason/eTransmitting on:?06/18/2024 02:52 PM EST
--- OUTSIDE RECORDS SUMMARY | 2024-06-18 14:53 | XMS_ITS ---
Author Organization [facility] Address [address] [place] [address] Care Team Providers Care Butter Printer Name Role Phone Raza Alexander MD Primary Care Provider Frederick Gonsalez [phone] Encounters Encounter Location Date Provider Diagnosis [facility] [address] [place] [address] 03/03/2023 Frederick Nj Plan Of Treatment No Information Progress Notes * ZENIA BASHIRDOB:1970 (52 yo F)Acc No.[id number]:03/03/2023 Patient:?ZENIA BASHIR :1970???Age:52 Y???Sex:Female Address[address], [address] * true * Date:? Generated for Tiffanie santo/Jason/eTransmitting on:?06/18/2024 02:52 PM EST
--- OUTSIDE RECORDS SUMMARY | 2024-06-18 14:53 | XMS_ITS | Patient Health Record ---
Author Organization [facility] Address [address] [place] [address] Care Team Providers Care Director Of Curriculum Name Role Phone Raza Alexander MD Primary Care Provider Frederick Gonsalez [phone] Allergies Allergen (clinical drug ingredient) Drug/Non Drug Allergy documented on EMR Reaction Allergy Type Onset Date Status Shellfish (FN) Shellfish-derived Products Unknown Drug Allergy Active Reason For Referral No Information Social History Tobacco Use: Social History Observation Description Date Details (start date - stop date) Never Smoker NA - NA Tobacco Use/Smoking Question Answer Notes Patient is [...] Never (0 point) Points 1 Interpretation Negative Section Notes: Nonsmoker; no sig alcohol Problems Problem Type SNOMED Code ICD Code Onset Dates Problem Status W/U Status Risk Notes Problem 065286039 Colon cancer screening (Z12.11) Active confirmed Problem Diverticular disease of colon (643328135) Diverticulosis of large intestine without perforation or abscess without bleeding (K57.30) Active confirmed Problem Gastroesophageal reflux disease (608803771) GERD (gastroesophageal reflux disease) (K21.9) Active confirmed Problem 930283820 Gastroesophageal reflux disease, unspecified whether esophagitis present (K21.9) Active confirmed Plan Of Treatment Future Test Test Name Order Date UPPER GI ENDOSCOPY 11/23/2022 COLONOSCOPY 11/23/2022 Insurance Providers Payer Name Payer Address Payer Phone Subscriber Number Group Number Insured Name Patient Relationship to Insured Coverage Start Date Coverage End Date [facility] [address] [place] [address] [id number] ZENIA BASHIR Self - patient is the insured Medical (General) History Medical History History ICD Code Denies [place],DM,CVA,Lung disease,renal dise ase GERD Surgical History Surgery Date(Month/Year) Vasectomy, and then a reversal with succ essful results
== END 2024-06-18 13:38 | disposition home or self-care (01) ==
PROVIDERS: PCP Internal Medicine; Visit Provider Orthopaedic Surgery
DX: M18.0 Bilateral primary osteoarthritis of first carpometacarpal joints (principal)
CPT/HCPCS: 20600; 99213

== ENCOUNTER → 2024-06-18 12:32 | Outpatient (BNVA) | payer BC, SELFPAY | PROVIDERS: PCP Internal Medicine; Visit Provider Orthopaedic Surgery | DX: M18.0 Bilateral primary osteoarthritis of first carpometacarpal joints (principal) | CPT/HCPCS: 20600; J1010; J2003 ==

== ENCOUNTER → 2024-06-20 15:48 | Outpatient (BNVA) | payer BC, SELFPAY | PROVIDERS: PCP Internal Medicine; Visit Provider Nurse Practitioner Family | DX: J32.8 Other chronic sinusitis (principal) | CPT/HCPCS: 96127 ==

== ENCOUNTER 2024-06-20 15:56 | Outpatient (AMB) | payer BC, SELFPAY ==
--- NOTE | 2024-06-20 15:48 | MHC.PC.OV ---
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 Pt c/o Chronic Sinus Pressure and unable to breath through his nose. Reports that Usually his PCP gives him Azithyromcin and infection goes away. [facility] Medical History (Updated 06/20/24 @ 15:57 by Daria Walton NP) GERD (gastroesophageal reflux disease) Obesity Surgical History History of circumcision History of vasectomy Family History Father No problems noted. 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 1. Little interest or pleasure in doing things: not at all 2. Feeling down, depressed, or hopeless: not at all 3. Trouble falling or staying asleep, or sleeping too much: not at all 4. Feeling tired or having little energy: not at all 5. Poor appetite or overeating: not at all 6. Feeling bad about yourself - or that you are a failure or have let yourself or your family down: not at all 7. Trouble concentrating on things, such as reading the newspaper or watching television: not at all 8. Moving or speaking so slowly that other people could have noticed. Or the opposite - being so fidgety or restless that you have been moving around a lot more than usual: not at all 9. Thoughts that you would be better off or of hurting yourself in some way: not at all Total score: 0 Depression Screening Interpretation: Negative Depression Screening Done: Yes 77357 - PHQ-9 Billing: Yes Source: Developed by Drs. Frederick Kumar, Lo Hagen, Garfield Vázquez and colleagues, with an educational trina from [employer]. Thrive Questionnaire Date Thrive assessed: 06/20/24 I am a: Patient What is your living situation today?: I have a steady place to live Within the past 12 months, did the food you bought not last and you didn't have the money to get more?: Never true Within the past 12 months, did you worry whether your food would run out before you got money to buy more?: Never true Do you have trouble paying for medicines?: No Do you have trouble getting transportation to medical appointments?: No Do you have trouble paying your heating and electricity bill?: No Do you have trouble taking care of your child, family member or friend?: No Do you have trouble with day-to-day activities such as bathing, preparing meals, shopping, managing finances, etc.?: No Are you currently unemployed and looking for a job?: No Are you interested in more education?: No Please select the resources that you would like help with: None Currently or been in a relationship where the following occur: No concerns reported THRIVE Score: 0 AUDIT C Alcohol Use Questionnaire (AUDIT-C) 1. How often do you have a drink containing alcohol?: Never 3. How often do you have six or more drinks on one occasion?: Never Total Score: 0 Score Reviewed/Action Taken: Yes DAMIR-7 AMB Questionnaire DAMIR-7 Date DAMIR - 7 assessed: 06/20/24 Feeling nervous, anxious, or on edge: 1 = Several days Not being able to stop or control worryin = Not at all Worrying too much about different things: 1 = Several days Trouble relaxin = Not at all Being so restless that it is hard to sit still: 0 = Not at all Becoming easily annoyed or irritable: 0 = Not at all Feeling afraid as if something awful might happen: 0 = Not at all Total DAMIR-7 score (0-4 normal; 5-9 mild; 10-14 moderate; 15-21 severe): 2 Source: Developed by Drs. Frederick Kumar, Lo Hagen, Garfield Vázquez and colleagues, with an educational trina from [employer]. DAMIR-7 Assessment Billing DAMIR-7 Assessment Tool: DAMIR-7 Assessment 88605 Review of Systems Const All systems reviewed & are unremarkable except as noted in HPI and below Physical exam (Primary Care) Tobacco/Smoking Status: Tobacco use Status Tobacco use date assessed 06/20/24 06/20/24 15:50 Patient Tobacco Use Status Never used Tobacco 06/20/24 15:50 Tobacco use type Cigarette 06/20/24 15:50 e-Cigarette/Vaping Use Never Used 06/20/24 15:50 PHQ-9: PHQ-9 Score PHQ-9: Total score 0 06/20/24 15:50 Depression Screening Interpretation: Negative Thrive Assessment: Date of Thrive Assessment Date Thrive assessed 06/20/24 06/20/24 15:50 Currently or been in a relationship where the following occur: No concerns reported Const Other: Appointment was conducted via phone. Telehealth Telehealth Telehealth Platform: Telephone Location of provider rendering services: practice address Location of patient: address on file Patient Identification confirmed using: Name, : Yes Telehealth method: video (IPHONE) Patient verbally consented to treatment: Yes Patient verbally consented to billing insurance company: Yes Patient informed of any privacy concerns related to visit: Yes Coding Level of Care Code Tele New Pt Level 4 (34402) Diagnoses Other chronic sinusitis J32.8 Sinusitis location: other Chronicity: chronic Additional Codes DAMIR-7 Assessment Billing - DAMIR-7 Assessment Tool: DAMIR-7 Assessment 72152 ([id number]) PHQ-9 - 43037 - PHQ-9 Billing: Yes ([id number]) Time Spent (min) 20 Assessment & Plan Assessment & Plan (1) Sinusitis: Code(s): J32.9 - Chronic sinusitis, unspecified Category: Medical Qualifiers: Sinusitis location: other Chronicity: chronic Qualified Code(s): J32.8 - Other chronic sinusitis Plan: Ordered Z-pack as requested. Medications: New azithromycin 500 mg PO DAILY 3 days 3 tabs 0RF Sinus pressure J32.8 - Other chronic sinusitis
--- OUTSIDE RECORDS SUMMARY | 2024-06-20 17:17 | XMS_ITS | Patient Health Record ---
Author Organization [facility] Address [address] [place] [address] Care Team Providers Care Meteorology Teacher Name Role Phone Raza Alexander MD Primary Care Provider Unavaila Deanne Mc Unavailable [phone] Allergies Allergen (clinical drug ingredient) Drug/Non Drug [...] Insured Coverage Start Date Coverage End Date [place] [address] [place] [phone] [id number] Jud Gonzales Spouse - patient is the spouse of the insured Medical (General) History Medical History History ICD Code Cancer Surgical History Surgery Date(Month/Year) Sperm extraction for IVF 04/2020
--- OUTSIDE RECORDS SUMMARY | 2024-06-20 17:18 | XMS_ITS | Clinical Summary ---
Author Organization [facility] Address [address] [place] [address] Phone Care Team Providers Care Acid Extractor Name Role Phone Raza Alexander MD Primary Care Provider [phone] Allergies No known active allergies Medications No [...] LIPID PANEL 1972 DEPRESSION SCREENING 1984 HEPATITIS C SCREENING 1990 HIV ONE-TIME SCREENING (18-6 5 YEARS) 1990 SMOKING STATUS SCREENING (On ce After 26 Yrs) 1998 COLOGUARD 2017 COLONOSCOPY 2017 COLORECTAL CANCER SCREENING 2017 FIT TEST 2017 FOBT 2017 SIGMOIDOSCOPY 2017 VIRTUAL COLONOSCOPY 2017 PNEUMOCOCCAL VACCINES (50+ years) (1 of 1 - PCV) 2022 ZOSTER VACCINES (1 of 2) 2022 INFLUENZA VACCINE (#1) 2023 05/01/2019 COVID-19 VACCINE (3 - 2023-2 5 season) 2023 05/26/2020, 04/28/2020 Adult [...] Medical Devices Not on file Care Teams Acid Extractor Relationship Specialty Start Date End Date Raza Alexander MD [address] [place] [address] [place], [place] PCP - General Internal Medicine 09/08/15 Additional Source Comments The information contained in this document represents components of the legal health record. It is not the complete legal health record.[facility]
--- OUTSIDE RECORDS SUMMARY | 2024-06-20 17:18 | XMS_ITS ---
Author Organization [facility] Address [address] [place] [address] Care Team Providers Care Master Machinist Name Role Phone Raza Alexander MD Primary Care Provider Frederick Gonsalez Unavailable [phone] REASON FOR VISIT screening,gerd Problems Problem Type SNOMED Code ICD Code Onset Dates Problem Status W/U Status Risk Notes Problem Diverticular disease of colon (096224150) Diverticulosis of large intestine without perforation or abscess without bleeding (K57.30) Active confirmed Problem Gastroesophageal reflux disease (623893514) GERD (gastroesophageal reflux disease) (K21.9) Active confirmed Encounters Encounter Location Date Provider Diagnosis [facility] [place] [address] [place] [id number] 02/23/2023 Frederick Nj Encounter for scre ening [...] Notes * ZENIA BASHIRDOB:1970 (53 yo F)Acc No.[id number]:02/23/2023 EGD&COL/MAC Patient:ZENIA BOSWELL Provider:?Frederick Nj MD :1970???Age:52 Y???Sex:Female D ate:02/23/2023 Address:[address] [place] [address] Pcp:Raza Alexander MD Subjective: * Chief Complaints: * ???1. Screening,gerd. * Medical History:? Objective: * Vitals:? Assessment: * Assessment: 1.?Encounter for screening c olonoscopy - Z12.11 (Primary)???2.?Colon polyps - K63.5???3.?Rectal polyp - K62.1???4.?Diverticulosis of large intestine without perforation or abscess without bleeding - K57.30???5.?Other hemorrhoids - K64.8???6.?GERD (gastroesophageal reflux disease) - K21.9???7.?Hiatal hernia - K44.9??? Plan: * Treatment: * Procedure Codes:?05267 LESIO N REMOVAL COLONOSCOPY, Modifiers: [place] , [address] COLONOSCOPY AND BIOPSY, Modifiers: 59 , [place], [address] UPPER GI ENDOSCOPY, BIOPSY * * The named appointment provid er may or may not be the originator of this progress note, and it is not deemed complete until electronically signed by the appointment provider. Sign off status: Pending * Provider:?Frederick Nj MD Date:? 023 Generated for Tiffanie santo/Jason/eTrowdysmitting on:?06/20/2024 05:18 PM EST
--- OUTSIDE RECORDS SUMMARY | 2024-06-20 17:18 | XMS_ITS | Patient Health Record ---
Author Organization [facility] Address [address] [place] [address] Care Team Providers Care Attendant [facility] Name Role Phone Raza Alexander MD Primary Care Provider Frederick Gonsalez [phone] Allergies Allergen (clinical drug ingredient) Drug/Non Drug [...] Problem Status W/U Status Risk Notes Problem [id number] Colon cancer screening (Z12.11) Active confirmed Problem Diverticular disease of colon (951919966) Diverticulosis of large intestine without perforation or abscess without bleeding (K57.30) Active confirmed Problem Gastroesophageal reflux disease (936653039) GERD (gastroesophageal reflux disease) (K21.9) Active confirmed Problem 958365966 Gastroesophageal reflux disease, unspecified whether esophagitis present (K21.9) Active confirmed Plan Of Treatment Future Test Test Name Order Date UPPER GI ENDOSCOPY 11/23/2022 COLONOSCOPY 11/23/2022 Insurance Providers Payer Name Payer Address Payer Phone Subscriber Number Group Number Insured Name Patient Relationship to Insured Coverage Start Date Coverage End Date [facility] [employer] [facility] [address] [place] [address] [id number] ZENIA BASHIR Self - patient is the insured Medical (General) History Medical History History ICD Code Denies MO,DM,CVA,Lung disease,renal dise ase GERD Surgical History Surgery Date(Month/Year) Vasectomy, and then a reversal with succ essful results
--- OUTSIDE RECORDS SUMMARY | 2024-06-20 17:18 | XMS_ITS ---
Author Organization [facility] Address [address] [place] [address] Care Team Providers Care Global Manager Name Role Phone Raza Alexander MD Primary Care Provider Frederick Gonsalez [phone] Encounters Encounter Location Date Provider Diagnosis [facility] [address] [place] [address] 03/03/2023 Frederick Nj Plan Of Treatment No Information Progress Notes * ZENIA BASHIRDOB:1970 (52 yo F)Acc No.[id number]:03/03/2023 Patient:?ZENIA BASHIR :1970???Age:52 Y???Sex:Female Address:[place], [address] * true * Date:? Generated for Tiffanie santo/Jason/eTransmitting on:?06/20/2024 05:18 PM EST
== END 2024-06-20 16:29 | disposition home or self-care (01) ==
PROVIDERS: PCP Internal Medicine; Visit Provider Nurse Practitioner Family
DX: J32.8 Other chronic sinusitis (principal)

== ENCOUNTER 2024-08-13 13:58 | Outpatient (AMB) | payer BC, SELFPAY ==
[2024-08-13 14:01] VITALS: BP 116/78; PULSE 76; RESP 16; TEMP 37.1; O2SAT 98; BMI 31.6
--- NOTE | 2024-08-13 14:01 | A.OFFPC_ITS ---
Vital Signs 08/13/24 14:01 Height 5 ft 7 in Weight 201 lb 9.6 oz BMI 31.6 BP 116/78 Blood Pressure Location Lt brachial Position Sitting Respiration 16 Pulse 76 Pulse Source Pulse Oximeter Temp 98.7 F Temp Source Oral Pulse Oximetry (%) 98 Oxygen Delivery Method Room Air Intake Visit Reasons: KASSIDY Dr Alexander Braiding Operator Required: No Accompanied by: Self / Same As Patient Allergies shellfish derived Allergy (Unknown, Verified 08/13/24 14:11) Rash Medication List - Last Reconciled 08/13/24 by GIAN Hooper loratadine-pseudoephedrine 10-240 mg ER (Claritin-D 24 Hour) 1 tab PO DAILY triamcinolone acetonide 0.1% 1 appl topical BID-TID Tobacco use date assessed: 08/13/24 Dental Screening Dental Screen Date: 08/13/24 Did you have a dental visit in the last 12 months?: Yes Did you have a dental problem in the last 6 months where you did not have access to dental care?: No Was dental information given to patient?: Patient has dentist HPI KASSIDY Dr Alexander HPI Details The patient is a 53-year-old male presenting for transitioning of care from Dr. Alexander, who retired. He reports an ongoing management of stress and anxiety, concerns regarding medication initiation, and evaluation of cholesterol levels. 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 He frequently experiences heightened anxiety and stress in the mornings. The patient has discussed initiating an SSRI to manage his anxiety with a psychiatrist and his therapist, yet remains cautious due to familial predisposition to substance abuse. In addition, the patient has previously been diagnosed with hyperlipidemia. Past laboratory tests indicated elevated cholesterol levels, including high LDL and low HDL, placing him at risk for cardiovascular conditions. The patient acknowledges frequent consumption of cholesterol-rich foods such as fried dishes and egg yolks and plans to adjust his diet accordingly. He adheres to a routine healthcare checkup schedule and practices preventive health strategies, showing interest in maintaining optimal physical health despite current stressors. Note: psychiatrist wants to try him on Lexapro. 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 [facility] Medical History (Updated 08/17/24 @ 17:16 by GIAN Hooper) GERD (gastroesophageal reflux disease) Obesity Surgical History History of circumcision History of vasectomy Family History Father No problems noted. 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 1. Little interest or pleasure in doing things: not at all 2. Feeling down, depressed, or hopeless: not at all 3. Trouble falling or staying asleep, or sleeping too much: not at all 4. Feeling tired or having little energy: not at all 5. Poor appetite or overeating: not at all 6. Feeling bad about yourself - or that you are a failure or have let yourself or your family down: not at all 7. Trouble concentrating on things, such as reading the newspaper or watching television: not at all 8. Moving or speaking so slowly that other people could have noticed. Or the opposite - being so fidgety or restless that you have been moving around a lot more than usual: not at all 9. Thoughts that you would be better off or of hurting yourself in some way: not at all Total score: 0 Depression Screening Interpretation: Negative Depression Screening Done: Yes Source: Developed by Drs. Frederick Kumar, Lo Hagen, Garfield Vázquez and colleagues, with an educational trina from [employer]. Thrive Questionnaire Date Thrive assessed: 08/13/24 I am a: Patient What is your living situation today?: I have a steady place to live Within the past 12 months, did the food you bought not last and you didn't have the money to get more?: Never true Within the past 12 months, did you worry whether your food would run out before you got money to buy more?: Never true Do you have trouble paying for medicines?: No Do you have trouble getting transportation to medical appointments?: No Do you have trouble paying your heating and electricity bill?: No Do you have trouble taking care of your child, family member or friend?: No Do you have trouble with day-to-day activities such as bathing, preparing meals, shopping, managing finances, etc.?: No Are you currently unemployed and looking for a job?: No Are you interested in more education?: No Please select the resources that you would like help with: None Currently or been in a relationship where the following occur: No concerns reported THRIVE Score: 0 AUDIT C Alcohol Use Questionnaire (AUDIT-C) 1. How often do you have a drink containing alcohol?: Never Total Score: 0 Score Reviewed/Action Taken: No DAMIR-7 AMB Questionnaire DAMIR-7 Date DAMIR - 7 assessed: 08/13/24 Feeling nervous, anxious, or on edge: 0 = Not at all Not being able to stop or control worryin = Not at all Worrying too much about different things: 0 = Not at all Trouble relaxin = Several days Being so restless that it is hard to sit still: 1 = Several days Becoming easily annoyed or irritable: 1 = Several days Feeling afraid as if something awful might happen: 0 = Not at all Total DAMIR-7 score (0-4 normal; 5-9 mild; 10-14 moderate; 15-21 severe): 3 Source: Developed by Drs. Frederick Kumar, Lo Hagen, Garfield Vázquez and colleagues, with an educational trina from [employer]. Review of Systems Const Denies headache(s) Eyes Denies loss of vision ENT Denies vertigo, Denies dizziness, Denies headache(s) and Denies sore throat Card Denies chest pain, Denies leg edema and Denies lightheadedness Resp Denies cough, Denies hemoptysis and Denies wheezing GI Denies abdominal pain, Denies melena, Denies constipation, Denies diarrhea and Denies vomiting Denies dysuria, Denies urinary frequency and Denies urinary urgency Musc Reports myalgias (Intermittent soreness in hands and lower extremities- attributed to forming), Denies arthralgias, Denies joint swelling, Denies numbness and Denies tingling Neuro Denies Abnormal speech present, Denies behavioral changes, Denies vertigo, Denies dizziness, Denies headache(s), Denies loss of vision, Denies memory loss, Denies numbness and Denies tingling Psych Reports anxiety (associated with increased stress), Denies behavioral changes, Denies depression, Denies memory loss and Denies panic attacks Edwin/Lymph Denies easy bleeding and Denies easy bruising Aller/Immun Denies wheezing Physical exam (Primary Care) Vital Signs: Last Vital Signs Temp 98.7 F 08/13/24 14:01 Pulse 76 08/13/24 14:01 Resp 16 08/13/24 14:01 BP 116/78 08/13/24 14:01 Pulse Ox 98 08/13/24 14:01 Oxygen Delivery Method Room Air 08/13/24 14:01 BMI result Body Mass Index 31.6 Tobacco/Smoking Status: Tobacco use Status Tobacco use date assessed 08/13/24 08/13/24 14:09 Patient Tobacco Use Status Never used Tobacco 08/13/24 14:09 Tobacco use type Cigarette 08/13/24 14:09 e-Cigarette/Vaping Use Never Used 08/13/24 14:09 PHQ-9: PHQ-9 Score PHQ-9: Total score 0 08/13/24 14:40 Depression Screening Interpretation: Negative Thrive Assessment: Date of Thrive Assessment Date Thrive assessed 08/13/24 08/13/24 14:09 Currently or been in a relationship where the following occur: No concerns reported Const General: healthy appearing, no acute distress, alert and awake Nutritional Appearance: well nourished Orientation/consciousness: oriented to person, oriented to place and oriented to time HENMT Ears: TM's normal bilaterally General nose exam: Normal nasal mucous membranes and turbinates present Eyes Conjunctivae: conjunctivae normal Sclerae: sclerae normal Pupils: Equal, round and reactive pupils present Neck Neck: Yes no lymphadenopathy Thyroid: Thyroid normal Carotids: no bruits Resp Effort & Inspection: normal respiratory effort and not tachypneic Auscultation: no crackles, no rales, no rhonchi and no wheezes Cardio Rate: regular rate Rhythm: regular rhythm Heart sounds: no murmurs and normal S1 and S2 GI Palpation (GI): Soft to palpation, nontender, no hepatomegaly and no splenomegaly Auscultation: normal bowel sounds Skin General skin exam: no rashes or lesions noted and dry skin Neuro General: oriented to person, oriented to place and oriented to time Cranial nerves: Yes Equal, round and reactive pupils present Speech: No Abnormal speech present Gait exam (Neuro): Normal gait present Motor exam (neuro): no tremor noted Extrem Right upper extremity: full ROM Left upper extremity: full ROM Right lower extremity: full ROM; no edema Left lower extremity: full ROM; no edema Psych Mental Status: mental status grossly normal Speech and movement: Normal speech and movement present Affect: normal affect Attitude: cooperative Thought process: Normal thought process present Coding Level of Care Code Est Pt Level 3 (87194) Diagnoses Anxiety F41.9 Mixed hyperlipidemia E78.2 Hyperlipidemia type: mixed hyperlipidemia Arthritis of carpometacarpal (CMC) joint of both thumbs M18.0 Myalgia M79.10 Time Spent (min) 36 Assessment & Plan Assessment & Plan (1) Anxiety: Code(s): F41.9 - Anxiety disorder, unspecified Category: Medical (2) HLD (hyperlipidemia): Code(s): E78.5 - Hyperlipidemia, unspecified Category: Medical Qualifiers: Hyperlipidemia type: mixed hyperlipidemia Qualified Code(s): E78.2 - Mixed hyperlipidemia (3) Arthritis of carpometacarpal (CMC) joint of both thumbs: Code(s): M18.0 - Bilateral primary osteoarthritis of first carpometacarpal joints Category: Medical (4) Myalgia: Comment: 20 min reviewing chart eval pt and documenting Code(s): M79.10 - Myalgia, unspecified site Category: Medical Plan Management of the patient's generalized anxiety disorder and hyperlipidemia was addressed. Psychiatry considered low-dose Lexapro for anxiety management, discussing potential benefits like anxiety reduction and side effects such as libido changes. Emphasis was placed on reducing cholesterol through diet?limiting intake of fried foods and egg yolks while considering omega-3 supplementation to increase HDL levels. An exercise regimen was recommended to mitigate stress and improve cardiovascular health. A follow-up lipid panel was ordered to guide further treatment, and the patient is scheduled for a review of these measures in three months. 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 Stretches and physical active will assist decreasing these symptoms as well. Patient was informed and verbally consented to the use of an ambient scribe for clinic note documentation during this visit. Orders: Orders Comprehensive [place]. Panel Fast 08/15/24 E66.9 - Obesity, unspecified, E78.5 - Hyperlipidemia, unspecified, F41.9 - Anxiety disorder, unspecified, R42 - Dizziness and giddiness Lipid Panel 08/15/24 E66.9 - Obesity, unspecified, E78.5 - Hyperlipidemia, unspecified, F41.9 - Anxiety disorder, unspecified, R42 - Dizziness and giddiness Vitamin D 25-OH Total 08/15/24 E66.9 - Obesity, unspecified, E78.5 - Hype rlipidemia, unspecified, F41.9 - Anxiety disorder, unspecified, R42 - Dizziness and giddiness Complete Blood Count Auto Diff 08/15/24 E66.9 - Obesity, unspecified, E78.5 - H yperlipidemia, unspecified, F41.9 - Anxiety disorder, unspecified, R42 - Dizziness and giddiness TSH reflex Free T4 08/15/24 E66.9 - Obesity, unspecified, E78.5 - Hyperlipid emia, unspecified, F41.9 - Anxiety disorder, unspecified, R42 - Dizziness and giddiness UA CC w/rflx Micro + Cult 08/15/24 E66.9 - Obesity, unspecified, E78.5 - Hyperlipidemia, unspecified, F41.9 - Anxiety disorder, unspecified, R42 - Dizziness and giddiness Glucose Fasting 08/15/24 E66.9 - Obesity, unspecified, E78.5 - Hyperlipidemia, unspecified, F41.9 - Anxiety disorder, unspecified, R42 - Dizziness and giddiness Patient Instructions: - Consider starting Lexapro at the low dose discussed. Talk to your psychiatrist if you decide to proceed. - Make dietary changes to lower cholesterol. Reduce fried foods and egg yolk intake. - Begin an omega-3 supplement to improve good cholesterol (HDL). - Exercise regularly to help with stress and improve heart health. - Return in three months for a follow-up and repeat cholesterol testing.
--- OUTSIDE RECORDS SUMMARY | 2024-08-13 15:11 | XMS_ITS | Patient Health Record ---
[facility] Address [address] [place] [address] Care Team Providers Care Dental Treatment Coordinator Name Role Phone Raza Alexander MD Primary Care Provider Unavaila Deanne Mc Unavailable [phone] Allergies Allergen (clinical drug ingredient) Drug/Non Drug [...] Insured Coverage Start Date Coverage End Date [employer] [place] [address] [place] [phone] [id number] Jud Gonzales Spouse - patient is the spouse of the insured Medical (General) History Medical History History ICD Code Cancer Surgical History Surgery Date(Month/Year) Sperm extraction for IVF 04/2020
--- OUTSIDE RECORDS SUMMARY | 2024-08-13 15:11 | XMS_ITS | Clinical Summary ---
Author Organization [facility] Address [address] [place] [address] Phone Care Team Providers Care Automobile Body Repair Chief Name Role Phone Raza Alexander MD Primary Care Provider [phone] Allergies No known active allergies Medications No [...] Medical Devices Not on file Care Teams Automobile Body Repair Chief Relationship Specialty Start Date End Date Raza Alexander MD [address] [place] [address] [place], [place] PCP - General Internal Medicine 09/08/15 Additional Source Comments The information contained in this document represents components of the legal health record. It is not the complete legal health record.[facility]
== END 2024-08-13 14:46 | disposition home or self-care (01) ==
LOC: HO.HMCH 13:58
PROVIDERS: PCP Internal Medicine
DX: F41.9 Anxiety disorder, unspecified (principal); E78.2 Mixed hyperlipidemia; M18.0 Bilateral primary osteoarthritis of first carpometacarpal joints; M79.10 Myalgia, unspecified site

== ENCOUNTER → 2024-08-13 13:58 | Outpatient (BNVA) | payer BC, SELFPAY | PROVIDERS: PCP Internal Medicine ==

== ENCOUNTER 2024-08-15 09:08 | Outpatient (REF) | payer BC, SELFPAY ==
[2024-08-15 09:39] LABS: MANUAL DIFF FLAG NO
--- OUTSIDE RECORDS SUMMARY | 2024-08-15 09:43 | XMS_ITS | Clinical Summary ---
Author Organization [facility] Address [address] [place] [address] Phone Care Team Providers Care Environmental Web Crawler Name Role Phone Raza Alexander MD Primary Care Provider [phone] Allergies No known active allergies Medications No [...] Medical Devices Not on file Care Teams Environmental Web Crawler Relationship Specialty Start Date End Date Raza Alexander MD [address] [place] [address] [place], [place] PCP - General Internal Medicine 09/08/15 Additional Source Comments The information contained in this document represents components of the legal health record. It is not the complete legal health record.[facility]
--- OUTSIDE RECORDS SUMMARY | 2024-08-15 09:43 | XMS_ITS | Patient Health Record ---
[facility] Address [address] [place] [address] Care Team Providers Care Human Resources Assistant Manager Name Role Phone Raza Alexander MD Primary Care Provider Unavaila Deanne Mc Unavailable [phone] Allergies Allergen (clinical drug ingredient) Drug/Non Drug [...] Insured Coverage Start Date Coverage End Date [place] [employer] [address] [place] [phone] [id number] Jud Gonzales Spouse - patient is the spouse of the insured Medical (General) History Medical History History ICD Code Cancer Surgical History Surgery Date(Month/Year) Sperm extraction for IVF 04/2020
[2024-08-15 10:45] LABS: Basophils Percent Auto 0.5 % (0-2); Eosinophils Absolute Auto 0.2 X10*3/uL (0.0-0.4); Eosinophils Percent Auto 3.6 % (0-4); Hematocrit 44.6 % (42.0-52.0); Hemoglobin 14.3 g/dl (14.0-18.0); Imm Gran Abs Auto 0.01 X10*3/uL (0.00-0.03); Imm Gran Pct Auto 0.2 % (0.0-0.4); Lymphocytes Absolute Auto 1.5 X10*3/uL (1.2-4.9); Lymphocytes Percent Auto 24.9 % (20-40); Mean Corpuscular HGB Conc 32.1 g/dl (31.0-36.0); Mean Corpuscular Hemoglobin 26.3 pg (27.0-33.0); Mean Platelet Volume 11.1 fL (9.4-12.4); Monocytes Absolute Auto 0.3 X10*3/uL (0.1-1.2); Monocytes Percent Auto 5.6 % (2-11); Neutrophils Absolute Auto 3.8 x10*3/uL (2.0-8.3); Neutrophils Percent Auto 65.2 % (45-73); Platelet Count 172 X10*3/uL (160-400); Red Blood Count 5.44 X10*6/uL (4.60-5.80); Red Cell Distribution Width 13.7 % (11.0-16.0); White Blood Count 5.9 X10*3/uL (4.8-10.8)
[2024-08-15 11:17] LABS: Alanine Aminotransferase 40 U/L (0-40); Albumin Level 4.2 g/dL (3.5-5.0); Alkaline Phosphatase 57 U/L (39-117); Anion Gap 11 (12-20); Aspartate Amino Transferase 31 U/L (5-37); Bilirubin Total 0.5 mg/dL (0.0-1.0); Blood Urea Nitrogen 20 mg/dL (9-16); Calcium 9.6 mg/dL (8.4-10.2); Carbon Dioxide 29 mmol/L (22-29); Chloride 109 mmol/L (96-108); Cholesterol 161 mg/dL (<200); Estimated Glomerular Filt Rate > 60; Glucose Fasting 100 mg/dL (60-99); HDL Cholesterol 36 mg/dL (>40); LDL Cholesterol Calculated 106 mg/dL (<100); Potassium 4.7 mmol/L (3.3-5.1); Sodium 144 mmol/L (135-145); Total Protein 7.9 g/dL (6.5-8.0); Triglycerides 99 mg/dL (<150)
[2024-08-15 11:37] LABS: TSH reflex Free T4 1.53 uIU/mL (0.32-4.0); Vitamin D 25-OH Total 27.2 ng/mL (>30)
[2024-08-15 11:49] LABS: Appearance Urine Clear; Color Urine Yellow; Glucose Urine UA Negative (Negative); Leukocyte Esterase Urine Negative (Negative); Nitrite Urine Negative (Negative); Specific Gravity - Urine 1.025 (1.005-1.025); Urine Blood Negative (Negative); Urine Ketones Negative (Negative); Urine Protein Negative (Neg-Trace)
== END 2024-08-15 09:09 | disposition home or self-care (01) ==
LOC: HO.LAB 09:08
DX: F41.9 Anxiety disorder, unspecified (principal); R42 Dizziness and giddiness; E66.9 Obesity, unspecified; E78.5 Hyperlipidemia, unspecified
CPT/HCPCS: 36415; 80053; 80061; 81003; 82306; 84443; 85025

== ENCOUNTER 2024-11-05 10:06 | Outpatient (AMB) | payer BC, SELFPAY ==
--- NOTE | 2024-11-05 10:43 | A.OFFVIS_ITS ---
Vital Signs 11/05/24 10:46 Height 5 ft 7 in Weight 201 lb BMI 31.5 Intake Visit Reasons: INJ- Right basal joint injection Intake Note: Tj 53 yr old male presents today for his right hand basal joint pain s/p injection from 06/18/24. States injection has helped a lot with pain. States he would like to repeat injection today. Hx of left basal joint injection with CAL Gibbons on 03/24/24. Allergies shellfish derived Allergy (Unknown, Verified 11/05/24 10:55) Rash HPI HPI INJ- Right basal joint injection: Details: Tj is a 54 year old right hand dominant man who returns for his right basal joint arthritis, S/P injection on 06/18/24. He received a left basal joint injection by CAL Gibbons on 03/24/24, with good relief. He complains of pain at the base of his right thumb, worse with pinching or gripping activities. He says that his last injection was helpful and he would like to repeat this today. 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 [facility] Medical History (Updated 08/17/24 @ 17:16 by GIAN Hooper) GERD (gastroesophageal reflux disease) Obesity Surgical History History of circumcision History of vasectomy Family History Father No problems noted. 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 Cognitive needs: No Hearing needs: No Vision needs: Yes (Glasses) Review of Systems Const All systems reviewed & are unremarkable except as noted in HPI and below Physical Exam Vital Signs: BMI result Body Mass Index 31.5 Const General: no acute distress and alert Orientation/consciousness: patient oriented x3 Neuro General: patient oriented x3 Extrem Other: Evaluation of Right Upper Extremity: The patient is alert, oriented, and in no acute distress Neuro: Median, Ulnar, Radial nerves motor and sensory intact and sensation is normal to the tips of all digits Vascular: Cap refill brisk ROM: He can make a fist and extend all his digits No lockng or catching Most tender over the basal joint Pos shoulder sign Pos CMC grind No MCP joint tenderness No tenderness over the 1st dorsal compartment Radiographs: 3 views of the right hand from 03/24/24 were reviewed by me today in clinic. They show no fractures or dislocations. There is basal joint arthritis with joint space narrowing, subchondral sclerosis, and osteophyte formation. Psych Appearance: grossly normal Affect: normal affect Attitude: cooperative Office Procedures AMB Fracture Care Details: Injection Fracture Billing Code: Fracture Billing Code Assessment & Plan Assessment & Plan (1) Arthritis of carpometacarpal (CMC) joint of both thumbs: Code(s): M18.0 - Bilateral primary osteoarthritis of first carpometacarpal joints Category: Medical Plan Assessment & Plan: 1. Right basal joint arthritis, S/P injections Date of injections: 11/05/24, 06/18/24 I educated him about this condition I discussed operative and non-operative treatment options The patient would like to proceed with an injection I discussed activity modification, they should limit or avoid any heavy or repetitive pinching or gripping activities He should continue to wear his comfort cool brace with daily activities Injection #1: The risks and benefits of a steroid injection including but not limited to risk of damage to blood vessels, nerve, tendon, infection, skin bleaching, persistent or worsening pain, and failure to improve symptoms were discussed with the patient and they wish to proceed with the steroid injection. Once consent was obtained the skin over the dorsum of the Right basal joint was sterilely prepped. The joint was then injected with a combination of 1 mL of (40 mg/ml} Depo-Medrol and 1% plain Lidocaine. The patient appears to have tolerated the procedure well and with no complications. He had good early relief before leaving clinic today and was very happy with how his injection went. He did feel little nauseous and lightheaded for a few minutes. This improved with an ice pack and a fan. He knows that they may not have another steroid injection into this joint for least 4 months. 2. Left basal joint arthritis, S/P injection Date of injection: 03/24/24 by CAL Gibbons Good relief following his injection He can receive a repeat no sooner than one month from now Scribed for Kelsea Lugo MD by Phoenix Bunn, pediatrician/medical doctor, on 11/05/24 at 10:55 AM, EST. Coding Level of Care Code Est Pt Level 3 (74686) Diagnoses Arthritis of carpometacarpal (CMC) joint of both thumbs M18.0 CPT Codes Fracture Care - Fracture Billing Code: Fracture Billing Code ([id number])
[2024-11-05 10:46] VITALS: BMI 31.5
--- OUTSIDE RECORDS SUMMARY | 2024-11-05 10:58 | XMS_ITS | Patient Health Record ---
[facility] Address [address] [place] [address] Care Team Providers Care C Developer Name Role Phone Raza Alexander MD Primary Care Provider Unavaila Deanne Mc Unavailable [phone] Allergies Allergen (clinical drug ingredient) Drug/Non Drug Allergy documented on EMR Reaction Allergy Type Onset Date Status Shellfish (FN) Shellfish-derived Products Unknown Drug Allergy Active Reason For Referral No Information Medications Medication SIG (Take, Route, Fr equency, Duration) Notes Start Date End Date Status Nightsplint . . . AFO - L1930; Duration: . Active Physical Therapy . . . 2-3x/week; Durat ion: 3-4 weeks 07/14/2020 Active Immunizations Vaccine Route Administration Date Status [...] Insured Coverage Start Date Coverage End Date [facility] [address] [place] [id number] Jud Gonzales Spouse - patient is the spouse of the insured Medical (General) History Medical History History ICD Code Cancer Surgical History Surgery Date(Month/Year) Sperm extraction for IVF 04/2020
--- OUTSIDE RECORDS SUMMARY | 2024-11-05 10:58 | XMS_ITS | Clinical Summary ---
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 Not on file Not on sharri e Last Filed Vital Signs Vital Sign Reading [...] 2022 ZOSTER VACCINES (1 of 2) 2022 COVID-19 VACCINE (3 - 2023-2 5 season) [...] age to complete this topic MENINGOCOCCAL VACCINES (B) Aged Out N o longer eligible based on patient's age to complete this topic Medical Devices Not on file Insurance [facility] TOTAL CHOICE INDEMNITY [place] [id number] [facility] TOTAL CHOICE INDEMNITY [facility] TOTAL CHOICE INDEMNITY [facility] TOTAL CHOICE [facility]DEMNITY [facility] TOTAL CHOICE INDEMNITY [facility] TOTAL CHOICE INDEMNITY [facility] TOTAL CHOICE INDEMNITY [facility] TOTAL CHOICE INDEMNITY [facility] TOTAL CHOICE INDEMNITY Care Teams Bulk Filler Relationship Specialty Start Date End Date Raza Alexander MD [address] [place] [address] [place] [address] PCP - General Internal Medicine 09/08/15 Additional Source Comments The information contained in this document represents components of the legal health record. It is not the complete legal health record.[facility]
--- OUTSIDE RECORDS SUMMARY | 2024-11-05 10:59 | XMS_ITS | Clinical Summary ---
Author Organization [facility]ida [facility] Address [address] [place], [place] [id number] Care Team Providers Care Bar Host Name Role Phone Aixa Naidu DO Primary Care Provider [phone] Allergies Active Allergy Reactions Criticality Noted Date Comments Shellfish Containing Products Hives 2019 Medications No known medications Social History Tobacco Use Types Packs/Day Years Used Date Smoking Tobacco: Never Smokeless Tobacco: Never Sex and Gender Information Value Date Recorded Sex Assigned at Not on file Legal Sex Male 2:29 PM EDT Gender Identity Not on file Sexual Orientation Not on file Last Filed Vital Signs Vital Sign Reading Time Taken Comments Blood Pressure 134/86 04/06/2020 7:40 AM EST Pulse 72 04/06/2020 7:40 AM EST Temperature 36.3 C (97.4 F) 04/06/2020 7:40 AM EST Respiratory Rate - - Oxygen Saturation 100% 04/06/2020 7:40 AM EST Inhaled Oxygen Concentration - - Weight - - Height - - Body Mass Index - - Plan of Treatment Not on file Insurance [facility] Care Teams Bar Host Relationship Specialty Start Date End Date Aixa Naidu DO [address] [place] [phone] PCP - General Internal Medicine 01/28/20
--- OUTSIDE RECORDS SUMMARY | 2024-11-05 10:59 | XMS_ITS | Patient Health Record ---
Author Organization [facility] Address [address] [place] [address] Care Team Providers Care Solid Waste Facility Operator Name Role Phone Raza Alexander MD Primary Care Provider Frederick Gonsalez [phone] Allergies Allergen (clinical drug ingredient) Drug/Non Drug [...] Problem Status W/U Status Risk Notes Problem 917112122 Colon cancer screening (Z12.11) Active confirmed Problem Diverticular disease of colon (451099281) Diverticulosis of large intestine without perforation or abscess without bleeding (K57.30) Active confirmed Problem GERD (gastroesophageal reflux disease) (K21.9) Active confirmed Problem [id number] Gastroesophageal reflux disease, unspecified whether esophagitis present (K21.9) Active confirmed Plan Of Treatment Future Test Test Name Order Date UPPER GI ENDOSCOPY 11/23/2022 COLONOSCOPY 11/23/2022 Insurance Providers Payer Name Payer Address Payer Phone Subscriber Number Group Number Insured Name Patient Relationship to Insured Coverage Start Date Coverage End Date [facility] PROF[employer]AL CLAIMS [address] [place] [address] [id number]ASHIR Self - patient is the insured Medical (General) History Medical History History ICD Code Denies CO,DM,CVA,Lung disease,renal dise ase GERD Surgical History Surgery Date(Month/Year) Vasectomy, and then a reversal with succ essful results
== END 2024-11-05 11:18 | disposition home or self-care (01) ==
LOC: HO.HOS 10:07
PROVIDERS: Visit Provider Orthopaedic Surgery
DX: M18.0 Bilateral primary osteoarthritis of first carpometacarpal joints (principal)
CPT/HCPCS: 20600; 99213

== ENCOUNTER → 2024-11-05 10:06 | Outpatient (BNVA) | payer BC, SELFPAY | PROVIDERS: Visit Provider Orthopaedic Surgery | DX: M18.0 Bilateral primary osteoarthritis of first carpometacarpal joints (principal) | CPT/HCPCS: 20600; J1010; J2003 ==

== ENCOUNTER 2024-11-12 09:27 | Outpatient (AMB) | payer BC, SELFPAY ==
[2024-11-12 09:32] VITALS: BP 110/70; PULSE 70; RESP 18; TEMP 36.2; O2SAT 97; BMI 31.6
--- NOTE | 2024-11-12 09:32 | A.OFFPC_ITS ---
Vital Signs 11/12/24 09:32 Height 5 ft 7 in Weight 201 lb 8 oz BMI 31.6 BP 110/70 Blood Pressure Location Lt brachial Position Sitting Respiration 18 Pulse 70 Pulse Source Pulse Oximeter Temp 97.1 F Temp Source Temporal Artery Scan Pulse Oximetry (%) 97 Oxygen Delivery Method Room Air Intake Visit Reasons: hld/anxiety Pattern Grader Cutter Required: No Accompanied by: Self / Same As Patient Allergies shellfish derived Allergy (Unknown, Verified 11/12/24 09:42) Rash Medication List - Last Reconciled 11/12/24 by GIAN Hooper loratadine-pseudoephedrine 10-240 mg ER (Claritin-D 24 Hour) 1 tab PO DAILY triamcinolone acetonide 0.1% 1 appl topical BID-TID Tobacco use date assessed: 11/12/24 Dental Screening Dental Screen Date: 11/12/24 Did you have a dental visit in the last 12 months?: Yes Did you have a dental problem in the last 6 months where you did not have access to dental care?: No Was dental information given to patient?: Patient has dentist HPI hld/anxiety HPI Details The patient is a 54-year-old male presenting for a follow-up on anxiety and hyperlipidemia management. The patient reports that his cholesterol levels are trending in the right direction, which he attributes to lifestyle changes and possibly dietary differences experienced during his recent trip. He notes a weight loss of 10 pounds since his last visit, despite being on vacation, and expresses a commitment to continue exercising. Regarding anxiety, the patient has been prescribed Lexapro by his psychiatrist which he reports has been beneficial in managing his symptoms. He acknowledges initial hesitance towards medication but now appreciates the positive impact it has had on his mood and interactions with family. [facility] Medical History GERD (gastroesophageal reflux disease) Obesity Surgical History History of circumcision History of vasectomy Family History Father No problems noted. 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 1. Little interest or pleasure in doing things: not at all 2. Feeling down, depressed, or hopeless: not at all 3. Trouble falling or staying asleep, or sleeping too much: not at all 4. Feeling tired or having little energy: not at all 5. Poor appetite or overeating: not at all 6. Feeling bad about yourself - or that you are a failure or have let yourself or your family down: not at all 7. Trouble concentrating on things, such as reading the newspaper or watching television: not at all 8. Moving or speaking so slowly that other people could have noticed. Or the opposite - being so fidgety or restless that you have been moving around a lot more than usual: not at all 9. Thoughts that you would be better off or of hurting yourself in some way: not at all Total score: 0 Depression Screening Interpretation: Negative Depression Screening Done: Yes Source: Developed by Drs. Frederick Kumar, Lo Hagen, Garfield Vázquez and colleagues, with an educational trina from [employer]. Thrive Questionnaire Date Thrive assessed: 11/12/24 I am a: Patient What is your living situation today?: I have a steady place to live Within the past 12 months, did the food you bought not last and you didn't have the money to get more?: Never true Within the past 12 months, did you worry whether your food would run out before you got money to buy more?: Never true Do you have trouble paying for medicines?: No Do you have trouble getting transportation to medical appointments?: No Do you have trouble paying your heating and electricity bill?: No Do you have trouble taking care of your child, family member or friend?: No Do you have trouble with day-to-day activities such as bathing, preparing meals, shopping, managing finances, etc.?: No Are you currently unemployed and looking for a job?: No Are you interested in more education?: No Please select the resources that you would like help with: None Currently or been in a relationship where the following occur: No concerns reported THRIVE Score: 0 AUDIT C Alcohol Use Questionnaire (AUDIT-C) 1. How often do you have a drink containing alcohol?: Never 3. How often do you have six or more drinks on one occasion?: Never Total Score: 0 Score Reviewed/Action Taken: No DAMIR-7 AMB Questionnaire DAMIR-7 Date DAMIR - 7 assessed: 11/12/24 Feeling nervous, anxious, or on edge: 0 = Not at all Not being able to stop or control worryin = Not at all Worrying too much about different things: 0 = Not at all Trouble relaxin = Several days Being so restless that it is hard to sit still: 1 = Several days Becoming easily annoyed or irritable: 1 = Several days Feeling afraid as if something awful might happen: 0 = Not at all Total DAMIR-7 score (0-4 normal; 5-9 mild; 10-14 moderate; 15-21 severe): 3 Source: Developed by Drs. Frederick Kumar, Lo Hagen, Garfield Vázquez and colleagues, with an educational trina from [employer]. Review of Systems Const Denies body aches, Denies chills, Denies fever(s), Denies headache(s) and Denies poor appetite Eyes Reports no additional complaints ENT Denies dysphagia, Denies dizziness, Denies headache(s) and Denies odynophagia Card Denies chest pain, Denies syncope, Denies edema, Denies irregular heart rhythm, Denies lightheadedness and Denies dyspnea Resp Denies cough and Denies dyspnea GI Denies abdominal pain, Denies constipation, Denies dysphagia, Denies diarrhea, Denies nausea, Denies odynophagia and Denies vomiting Reports no additional complaints Musc Denies abnormal gait and Reports arthralgias (right thumb) Skin/Breast Reports system reviewed and no additional complaints, except as documented Neuro Denies abnormal gait, Denies dizziness, Denies syncope and Denies headache(s) Psych Reports anxiety Physical exam (Primary Care) Vital Signs: Last Vital Signs Temp 97.1 F 11/12/24 09:32 Pulse 70 11/12/24 09:32 Resp 18 11/12/24 09:32 BP 110/70 11/12/24 09:32 Pulse Ox 97 11/12/24 09:32 Oxygen Delivery Method Room Air 11/12/24 09:32 BMI result Body Mass Index 31.6 Tobacco/Smoking Status: Tobacco use Status Tobacco use date assessed 11/12/24 11/12/24 09:40 Patient Tobacco Use Status Never used Tobacco 11/12/24 09:40 Tobacco use type Cigarette 11/12/24 09:40 e-Cigarette/Vaping Use Never Used 11/12/24 09:40 PHQ-9: PHQ-9 Score PHQ-9: Total score 0 11/12/24 09:49 Depression Screening Interpretation: Negative Thrive Assessment: Date of Thrive Assessment Date Thrive assessed 11/12/24 11/12/24 09:40 Currently or been in a relationship where the following occur: No concerns reported Const General: cooperative, healthy appearing, comfortable and no acute distress Orientation/consciousness: patient oriented x3 HENMT Head: Yes normocephalic Ears: hearing grossly normal bilaterally General nose exam: Normal external nose present Eyes General: appearance normal, both eyes and all related structures Conjunctivae: conjunctivae normal Neck Neck: Yes full ROM and Yes no lymphadenopathy Resp Effort & Inspection: normal respiratory effort Auscultation: clear to auscultation bilaterally, no crackles, no rales, no rhonchi and no wheezes Cardio Rate: regular rate Rhythm: regular rhythm Skin General skin exam: no rashes or lesions noted Neuro General: patient oriented x3 Gait exam (Neuro): Normal gait present Extrem General: Yes normal to inspection, Yes full ROM and No edema Right upper extremity: Extremity exam: right hand (+ROM in right thumb, no edema or pain) Psych Affect: normal affect Attitude: cooperative Insight: Good insight present (Psych) Judgement: Good judgement present (Psych) Results Reviewed Results Reviewed: Laboratory Tests 08/15/24 08/15/24 09:34 09:38 WBC 5.9 RBC 5.44 Hgb 14.3 Hct 44.6 MCV 82.0 MCH 26.3 L MCHC 32.1 RDW 13.7 Plt Count 172 MPV 11.1 Sodium 144 Potassium 4.7 D Chloride 109 H Carbon Dioxide 29 Anion Gap 11 L BUN 20 H Creatinine 0.86 Estimated GFR > 60 Fasting Glucose 100 H Calcium 9.6 Total Bilirubin 0.5 AST 31 ALT 40 Alkaline Phosphatase 57 Total Protein 7.9 Albumin 4.2 Triglycerides 99 Cholesterol 161 LDL Cholesterol, Calc 106 H HDL Cholesterol 36 L 25-OH Vitamin D Total 27.2 L TSH 1.53 Urine Color Yellow Urine Appearance Clear Urine pH 6.0 Ur Specific [place] 1.025 Urine Protein Negative Urine Glucose (UA) Negative Urine Ketones Negative Urine Blood Negative Urine Nitrite Negative Ur Leukocyte Esterase Negative Coding Level of Care Code Est Pt Level 3 (38556) Diagnoses Anxiety F41.9 Mixed hyperlipidemia E78.2 Hyperlipidemia type: mixed hyperlipidemia Class 1 obesity without serious comorbidity with body mass index (BMI) of 31.0 to 31.9 in adult, unspecified obesity type E66.811; Z68.31 Obesity type: unspecified obesity type Obesity classification: adult class 1 (BMI 30 - 34.9) Body mass index: BMI 31.0-31.9 Serious obesity comorbidity presence: without serious comorbidity Arthritis of carpometacarpal (CMC) joint of both thumbs M18.0 Impaired fasting glucose R73.01 Vitamin D deficiency E55.9 Time Spent (min) 35 Assessment & Plan Assessment & Plan (1) Anxiety: Code(s): F41.9 - Anxiety disorder, unspecified Category: Medical Plan: Encouraged CBT Reports that he was started on Lexapro with positive effects isn't sure of the dose at this time Follow up with Psychiatry as scheduled (2) HLD (hyperlipidemia): Code(s): E78.5 - Hyperlipidemia, unspecified Category: Medical Qualifiers: Hyperlipidemia type: mixed hyperlipidemia Qualified Code(s): E78.2 - Mixed hyperlipidemia Plan: LDL 106 decreased from 150, HDL 36 Discussed lifestyle modifications including dietary changes and physical activity Encouraged fish oil supplement (3) Obesity: Code(s): E66.9 - Obesity, unspecified Category: Medical Qualifiers: Obesity type: unspecified obesity type Obesity classification: adult class 1 (BMI 30 - 34.9) Body mass index: BMI 31.0-31.9 Serious obesity comorbidity presence: without serious comorbidity Qualified Code(s): E66.811 - Obesity, class 1; Z68.31 - Body mass index [BMI] 31.0-31.9, adult Plan: Encouraged to exercise for at least 30 minutes a day/5 days a week Healthy eating discussed. Encouraged to eat fruits/vegetables, protein- fish/baked chicken, and to avoid salty/fried foods, sweets, caffeine and carbohydrates. Encouraged to increase water intake 6-8 glasses a day (4) Arthritis of carpometacarpal (CMC) joint of both thumbs: Code(s): M18.0 - Bilateral primary osteoarthritis of first carpometacarpal joints Category: Medical Plan: Reports getting shots recently in right thumb, and was told that he might have to get surgery in the future Follow up with hand surgeon as scheduled (5) Impaired fasting glucose: Code(s): R73.01 - Impaired fasting glucose Category: Medical Plan: Fasting glucose went from 109-97 and now is at 100 We will continue to monitor (6) Vitamin D deficiency: Code(s): E55.9 - Vitamin D deficiency, unspecified Category: Medical Plan: Encouraged vitamin D3 supplement OTC Orders: Orders UA CC w/rflx Micro + Cult 6 Months F41.9 - Anxiety disorder, unspecified, E78.2 - Mixed hyperlipidemia, E66.9 - Obesity, unspecified, M18.0 - Bilateral primary osteoarthritis of first carpometacarpal joints, M75.102 - Unspecified rotator cuff tear or rupture of left shoulder, not specified as traumatic Vitamin D 25-OH Total 6 Months F41.9 - Anxiety disorder, unspecified, E78.2 - Mixed hyperlipidemia, E66.9 - Obesity, unspecified, M18.0 - Bilateral primary osteoarthritis of first carpometacarpal joints, M75.102 - Unspecified rotator cuff tear or rupture of left shoulder, not specified as traumatic Complete Blood Count Auto Diff 6 Months F41.9 - Anxiety disorder, unspecified, E78.2 - Mixed hyperlipidemia, E66.9 - Obesity, unspecified, M18.0 - Bilateral primary osteoarthritis of first carpometacarpal joints, M75.102 - Unspecified rotator cuff tear or rupture of left shoulder, not specified as traumatic Comprehensive [place]. Panel Fast 6 Months F41.9 - Anxiety disorder, unspecified, E78.2 - Mixed hyperlipidemia, E66.9 - Obesity, unspecified, M18.0 - Bilateral primary osteoarthritis of first carpometacarpal joints, M75.102 - Unspecified rotator cuff tear or rupture of left shoulder, not specified as traumatic Lipid Panel 6 Months F41.9 - Anxiety disorder, unspecified, E78.2 - Mixed hyperlipidemia, E66.9 - Obesity, unspecified, M18.0 - Bilateral primary osteoarthritis of first carpometacarpal joints, M75.102 - Unspecified rotator cuff tear or rupture of left shoulder, not specified as traumatic TSH reflex Free T4 6 Months F41.9 - Anxiety disorder, unspecified, E78.2 - Mixed hyperlipidemia, E66.9 - Obesity, unspecified, M18.0 - Bilateral primary osteoarthritis of first carpometacarpal joints, M75.102 - Unspecified rotator cuff tear or rupture of left shoulder, not specified as traumatic
--- OUTSIDE RECORDS SUMMARY | 2024-11-12 09:57 | XMS_ITS | Clinical Summary ---
Author Organization [facility] Address [address] [place] [id number] Phone Care Team Providers Care Brasswind Instrument Repairer Name Role Phone Raza Alexander MD Primary Care Provider [phone] Allergies No known active allergies Medications No [...] topic Medical Devices Not on file Insurance [facility] TOTAL CHOICE INDEMNITY [place] SMITH [id number] [employer] [facility] TOTAL CHOICE INDEMNITY [employer] [facility] TOTAL CHOICE INDEMNITY [email or web address] TOTAL CHOICE INDEMNITY [employer] [facility] TOTAL CHOICE INDEMNITY [email or web address] TOTAL CHOICE INDEMNITY [employer] [facility] TOTAL CHOICE INDEMNITY [facility] TOTAL CHOICE INDEMNITY [facility] TOTAL CHOICE INDEMNITY Care Teams Brasswind Instrument Repairer Relationship Specialty Start Date End Date Raza Alexander MD [address] [place] [address] [place] [address] PCP - General Internal Medicine 09/08/15 Additional Source Comments The information contained in this document represents components of the legal health record. It is not the complete legal health record.[facility]
--- OUTSIDE RECORDS SUMMARY | 2024-11-12 09:57 | XMS_ITS | Patient Health Record ---
Author Organization [facility] Address [address] [place] [address] Care Team Providers Care Template Reproduction Technician Name Role Phone Raza Alexander MD Primary Care Provider Frederick Gonsalez [phone] Allergies Allergen (clinical drug ingredient) Drug/Non Drug [...] Problem Status W/U Status Risk Notes Problem 552563763 Colon cancer screening (Z12.11) Active confirmed Problem Diverticular disease of colon (300526862) Diverticulosis of large intestine without perforation or abscess without bleeding (K57.30) Active confirmed Problem GERD (gastroesophageal reflux disease) (K21.9) Active confirmed Problem 278820200 Gastroesophageal reflux disease, unspecified whether esophagitis present (K21.9) Active confirmed Plan Of Treatment Future Test Test Name Order Date UPPER GI ENDOSCOPY 11/23/2022 COLONOSCOPY 11/23/2022 Insurance Providers Payer Name Payer Address Payer Phone Subscriber Number Group Number Insured Name Patient Relationship to Insured Coverage Start Date Coverage End Date [facility] [employer] [facility] [address] [place] [address] [id number] ZENIA BASHIR Self - patient is the insured Medical (General) History Medical History History ICD Code Denies CA,DM,CVA,Lung disease,renal dise ase GERD Surgical History Surgery Date(Month/Year) Vasectomy, and then a reversal with succ essful results
--- OUTSIDE RECORDS SUMMARY | 2024-11-12 09:57 | XMS_ITS | Clinical Summary ---
Author Organization [facility] Address [address] [place], [place] [address] Care Team Providers Care Railway Yard Assistant Name Role Phone Aixa aNidu DO Primary Care Provider [phone] Allergies Active Allergy Reactions Criticality Noted Date [...] Plan of Treatment Not on file Insurance [facility] Care Teams Railway Yard Assistant Relationship Specialty Start Date End Date Aixa Naidu DO [address] [place] [id number] PCP - General Internal Medicine 01/28/20
--- OUTSIDE RECORDS SUMMARY | 2024-11-12 09:57 | XMS_ITS | Patient Health Record ---
[facility] Address [address] [place] [address] Care Team Providers Care Financial Sales Assistant Name Role Phone Raza Alexander MD Primary Care Provider Unavaila Deanne Mc Unavailable [phone] Allergies Allergen (clinical drug ingredient) Drug/Non Drug [...] Insured Coverage Start Date Coverage End Date [facility] [address] [place] [id number] [phone] [id number] Jud Gonzales Spouse - patient is the spouse of the insured Medical (General) History Medical History History ICD Code Cancer Surgical History Surgery Date(Month/Year) Sperm extraction for IVF 04/2020
== END 2024-11-12 10:13 | disposition home or self-care (01) ==
LOC: HO.HMCH 09:28
DX: F41.9 Anxiety disorder, unspecified (principal); E78.2 Mixed hyperlipidemia; E66.811 Obesity, class 1; Z68.31 Body mass index [BMI] 31.0-31.9, adult; M18.0 Bilateral primary osteoarthritis of first carpometacarpal joints; R73.01 Impaired fasting glucose; E55.9 Vitamin D deficiency, unspecified

== ENCOUNTER 2025-03-11 12:39 | Outpatient (AMB) | payer BC, SELFPAY ==
[2025-03-11 12:49] VITALS: BMI 31.5
--- NOTE | 2025-03-11 12:49 | A.OFFVIS_ITS ---
Vital Signs 03/11/25 12:49 Height 5 ft 7 in Weight 201 lb BMI 31.5 Intake Visit Reasons: INJ- Right basal joint injection last inj 11/05/24 Intake Note: Tj 53 yr old male presents today for his right hand basal joint pain s/p injection from 11/05/24. States injection has helped a lot with pain. States he would like to repeat injection today. Allergies shellfish derived Allergy (Unknown, Verified 03/11/25 12:50) Rash HPI HPI INJ- Right basal joint injection last inj 11/05/24: Details: Tj is a 54 year old right hand dominant man who returns for his right basal joint arthritis, S/P injection on 11/05/24. He received a left basal joint injection by CAL Gibbons on 03/24/24, with good relief. He complains of pain at the base of his right thumb, worse with pinching or gripping activities. He found good relief from his previous injection and he would like to repeat it today. 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 He finds this difficult due to his pain. [facility] Medical History GERD (gastroesophageal reflux disease) Obesity Surgical History History of circumcision History of vasectomy Family History Father No problems noted. 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 [employer] Cognitive needs: No Hearing needs: No Vision needs: Yes (Glasses) Review of Systems Const All systems reviewed & are unremarkable except as noted in HPI and below Physical Exam Vital Signs: BMI result Body Mass Index 31.5 Const General: no acute distress and alert Orientation/consciousness: patient oriented x3 Neuro General: patient oriented x3 Extrem Other: Evaluation of Right Upper Extremity: The patient is alert, oriented, and in no acute distress Neuro: Median, Ulnar, Radial nerves motor and sensory intact and sensation is normal to the tips of all digits Vascular: Cap refill brisk ROM: He can make a fist and extend all his digits No lockng or catching Most tender over the basal joint Pos shoulder sign Pos CMC grind No MCP joint tenderness No tenderness over the 1st dorsal compartment Psych Appearance: grossly normal Affect: normal affect Attitude: cooperative Office Procedures AMB Fracture Care Details: No fracture, injection medium joint Fracture Billing Code: Fracture Billing Code Assessment & Plan Assessment & Plan (1) Arthritis of carpometacarpal (CMC) joint of both thumbs: Code(s): M18.0 - Bilateral primary osteoarthritis of first carpometacarpal joints Category: Medical Plan Assessment & Plan: 1. Right basal joint arthritis, S/P injections Date of injections: 03/11/25, 11/05/24, 06/18/24 I educated him about this condition I discussed operative and non-operative treatment options The patient would like to proceed with an injection I discussed activity modification, they should limit or avoid any heavy or repetitive pinching or gripping activities He should continue to wear his comfort cool brace with daily activities Injection #1: The risks and benefits of a steroid injection including but not limited to risk of damage to blood vessels, nerve, tendon, infection, skin bleaching, persistent or worsening pain, and failure to improve symptoms were discussed with the patient and they wish to proceed with the steroid injection. Once consent was obtained the skin over the dorsum of the Right basal joint was sterilely prepped. The joint was then injected with a combination of 1 mL of (40 mg/ml} Depo-Medrol and 1% plain Lidocaine. The patient appears to have tolerated the procedure well and with no complications. He had good early relief before leaving clinic today and was very happy with how his injection went. He did feel little nauseous and lightheaded for a few minutes. This improved with an ice pack and a fan. He knows that they may not have another steroid injection into this joint for least 4 months. 2. Left basal joint arthritis, S/P injection Date of injection: 03/24/24 by CAL Gibbons Good relief following his injection He can receive a repeat no sooner than one month from now Scribed for Kelsea Lugo MD by Phoenix Bunn medical practice administrator, on 03/11/25 at 1:00 PM, EST. Coding Level of Care Code Est Pt Level 4 (58650) Diagnoses Arthritis of carpometacarpal (CMC) joint of both thumbs M18.0 CPT Codes Fracture Care - Fracture Billing Code: Fracture Billing Code ([id number])
--- OUTSIDE RECORDS SUMMARY | 2025-03-11 15:42 | XMS_ITS | Clinical Summary ---
Author Organization [facility] Address [address] [place] [address] Phone Care Team Providers Care Acid Operator Name Role Phone Raza Alexander MD Primary Care Provider [phone] Allergies No known active allergies Medications No [...] (1 of 2) 2022 INFLUENZA VACCINE (#1) 2024 05/01/2019 COVID-19 VACCINE (3 - 2024-2 6 season) 2024 05/26/2020, 04/28/2020 Adult Td,Tdap Booster 06/07/2026 06/07/2016 RSV VACCINE (1 - 1-dose 75+ series) 11/06/2047 HEPATITIS A VACCINES Aged Out No long [...] topic Medical Devices Not on file Insurance [facility] TOTAL CHOICE INDEMNITY [facility] TOTAL CHOICE INDEMNITY [facility] INDEMNITY [facility]OTAL [facility] INDEMNITY [facility]OTAL CHOICE INDEMNITY [facility]OTAL [facility]ICE [facility]OTAL [facility] INDEMNITY [facility] TOTAL CHOICE INDEMNITY [facility] TOTAL CHOICE INDEMNITY Care Teams Acid Operator Relationship Specialty Start Date End Date Raza Alexander MD [address] [place] [address] [place] [address] PCP - General Internal Medicine 09/08/15 Additional Source Comments The information contained in this document represents components of the legal health record. It is not the complete legal health record.[facility]
--- OUTSIDE RECORDS SUMMARY | 2025-03-11 15:43 | XMS_ITS | Clinical Summary ---
Author Organization [facility] Address [address] [place], [place] [address] Care Team Providers Care Tax Associate Name Role Phone Aixa Naidu DO Primary Care Provider [phone] Allergies Active Allergy Reactions Criticality Noted Date [...] Plan of Treatment Not on file Insurance [facility] Care Teams Tax Associate Relationship Specialty Start Date End Date Aixa Naidu DO [address] [place] [phone] PCP - General Internal Medicine 01/28/20
== END 2025-03-11 13:17 | disposition home or self-care (01) ==
LOC: HO.HOS 12:39
PROVIDERS: Visit Provider Orthopaedic Surgery
DX: M18.0 Bilateral primary osteoarthritis of first carpometacarpal joints (principal)
CPT/HCPCS: 20600; 99213

== ENCOUNTER → 2025-03-11 12:39 | Outpatient (BNVA) | payer BC, SELFPAY | PROVIDERS: Visit Provider Orthopaedic Surgery | DX: M18.0 Bilateral primary osteoarthritis of first carpometacarpal joints (principal) | CPT/HCPCS: 20600; J1100; J2003 ==